=== PATIENT | male | born 1965 | race Caucasian/White ===

== ENCOUNTER → 2019-12-16 08:36 | Outpatient (BNVA) | payer OTHER, SELFPAY | PROVIDERS: Visit Provider Physician Assistant | DX: Z76.89 Persons encountering health services in other specified circumstances (principal) ==

== ENCOUNTER 2022-05-08 10:07 | Outpatient (REF) | payer BC, SELFPAY ==
[2022-05-08 11:50] LABS: MANUAL DIFF FLAG NO
[2022-05-08 12:04] LABS: Appearance Urine Clear; Color Urine Yellow; Glucose Urine UA Negative (Negative); Leukocyte Esterase Urine Negative (Negative); Nitrite Urine Negative (Negative); PH 5.5 (5.0-9.0); Specific Gravity - Urine 1.015 (1.005-1.025); Urine Blood Negative (Negative); Urine Ketones Negative (Negative); Urine Protein Negative (Neg-Trace)
[2022-05-08 12:07] LABS: Basophils Percent Auto 0.5 % (0-2); Eosinophils Absolute Auto 0.1 X10*3/uL (0.0-0.4); Eosinophils Percent Auto 1.7 % (0-4); Hemoglobin 15.4 g/dl (14.0-18.0); Imm Gran Abs Auto 0.04 X10*3/uL (0.00-0.03); Imm Gran Pct Auto 0.6 % (0.0-0.4); Lymphocytes Absolute Auto 2.5 X10*3/uL (1.2-4.9); Lymphocytes Percent Auto 38.4 % (20-40); Mean Corpuscular HGB Conc 34.2 g/dl (31.0-36.0); Mean Corpuscular Hemoglobin 30.3 pg (27.0-33.0); Mean Corpuscular Volume 88.4 fL (80.0-98.0); Monocytes Absolute Auto 0.5 X10*3/uL (0.1-1.2); Monocytes Percent Auto 7.9 % (2-11); Neutrophils Absolute Auto 3.3 x10*3/uL (2.0-8.3); Neutrophils Percent Auto 50.9 % (45-73); Platelet Count 255 X10*3/uL (160-400); Red Blood Count 5.09 X10*6/uL (4.60-5.80); Red Cell Distribution Width 12.5 % (11.0-16.0); White Blood Count 6.6 X10*3/uL (4.8-10.8)
[2022-05-08 12:37] LABS: Alanine Aminotransferase 40 U/L (0-40); Albumin Level 4.6 g/dL (3.5-5.0); Alkaline Phosphatase 56 U/L (39-117); Anion Gap 13 (12-20); Aspartate Amino Transferase 33 U/L (5-37); Bilirubin Total 0.5 mg/dL (0.0-1.0); Blood Urea Nitrogen 12 mg/dL (9-16); Calcium 9.7 mg/dL (8.4-10.2); Carbon Dioxide 28 mmol/L (22-29); Chloride 103 mmol/L (96-108); Cholesterol 226 mg/dL; Estimated Glomerular Filt Rate > 60; Glucose Fasting 107 mg/dL (60-99); HDL Cholesterol 54 mg/dL; LDL Cholesterol Calculated 112 mg/dl; Potassium 4.3 mmol/L (3.3-5.1); Sodium 140 mmol/L (135-145); Total Protein 7.9 g/dL (6.5-8.0); Triglycerides 304 mg/dL
[2022-05-08 12:54] LABS: TSH reflex Free T4 2.61 uIU/mL (0.32-4.0)
[2022-05-09 17:28] LABS: Follicle Stimulating Hormone 2.7 mIU/mL (1.6-8.0); Lutenizing Hormone 3.9 mIU/mL (1.5-9.3); Sex Hormone Binding Globulin 34 nmol/L (10-50)
[2022-05-15 18:10] LABS: Testosterone, Free 90.6 pg/mL (35.0-155.0); Testosterone, Total 410 ng/dL (250-1100)
== END 2022-05-08 10:08 | disposition home or self-care (01) ==
LOC: HO.HMGCLDS 10:07
PROVIDERS: Visit Provider Nurse Practitioner Family
DX: N52.9 Male erectile dysfunction, unspecified (principal)
CPT/HCPCS: 36415; 80053; 80061; 81003; 83001; 83002; 84270; 84402; 84403; 84443; 85025

== ENCOUNTER → 2022-06-19 07:23 | Outpatient (BNVA) | payer BC, SELFPAY | PROVIDERS: PCP Nurse Practitioner Family; Referring Provider Nurse Practitioner Family; Visit Provider Physician Assistant | DX: Z13.89 Encounter for screening for other disorder (principal) ==

== ENCOUNTER 2022-12-07 07:38 | Outpatient (REF) | payer BC, SELFPAY ==
[2022-12-07 11:19] LABS: MANUAL DIFF FLAG NO
[2022-12-07 11:24] LABS: Appearance Urine Clear; Color Urine Yellow; Glucose Urine UA Negative (Negative); Leukocyte Esterase Urine Negative (Negative); Nitrite Urine Negative (Negative); Urine Blood Negative (Negative); Urine Ketones Negative (Negative); Urine Protein Negative (Neg-Trace)
[2022-12-07 11:31] LABS: Basophils Percent Auto 0.3 % (0-2); Eosinophils Absolute Auto 0.1 X10*3/uL (0.0-0.4); Eosinophils Percent Auto 1.9 % (0-4); Hematocrit 40.9 % (42.0-52.0); Hemoglobin 14.1 g/dl (14.0-18.0); Imm Gran Abs Auto 0.04 X10*3/uL (0.00-0.03); Imm Gran Pct Auto 0.7 % (0.0-0.4); Lymphocytes Absolute Auto 2.4 X10*3/uL (1.2-4.9); Lymphocytes Percent Auto 40.3 % (20-40); Mean Corpuscular HGB Conc 34.5 g/dl (31.0-36.0); Mean Corpuscular Hemoglobin 29.9 pg (27.0-33.0); Mean Corpuscular Volume 86.7 fL (80.0-98.0); Monocytes Absolute Auto 0.4 X10*3/uL (0.1-1.2); Monocytes Percent Auto 7.4 % (2-11); Neutrophils Absolute Auto 2.9 x10*3/uL (2.0-8.3); Neutrophils Percent Auto 49.4 % (45-73); Platelet Count 263 X10*3/uL (160-400); Red Blood Count 4.72 X10*6/uL (4.60-5.80); Red Cell Distribution Width 12.6 % (11.0-16.0); White Blood Count 5.9 X10*3/uL (4.8-10.8)
[2022-12-07 11:53] LABS: Alanine Aminotransferase 27 U/L (0-40); Albumin Level 4.2 g/dL (3.5-5.0); Alkaline Phosphatase 61 U/L (39-117); Anion Gap 15 (12-20); Aspartate Amino Transferase 22 U/L (5-37); Bilirubin Total 0.4 mg/dL (0.0-1.0); Blood Urea Nitrogen 13 mg/dL (9-16); Calcium 9.5 mg/dL (8.4-10.2); Carbon Dioxide 23 mmol/L (22-29); Chloride 107 mmol/L (96-108); Cholesterol 171 mg/dL (<200); Estimated Glomerular Filt Rate > 60; Glucose Fasting 101 mg/dL (60-99); HDL Cholesterol 52 mg/dL (>40); LDL Cholesterol Calculated 81 mg/dL (<100); Potassium 3.9 mmol/L (3.3-5.1); Sodium 141 mmol/L (135-145); Total Protein 7.5 g/dL (6.5-8.0); Triglycerides 193 mg/dL (<150)
[2022-12-07 12:11] LABS: TSH reflex Free T4 2.23 uIU/mL (0.32-4.0)
[2022-12-07 12:46] LABS: Prostate Specific Antigen Scr 0.61 ng/mL (<0.05-4.0)
== END 2022-12-07 07:39 | disposition home or self-care (01) ==
LOC: HO.HMGCLDS 07:38
PROVIDERS: PCP Nurse Practitioner Family; Visit Provider Nurse Practitioner Family
DX: Z00.00 Encounter for general adult medical examination without abnormal findings (principal); Z12.5 Encounter for screening for malignant neoplasm of prostate; E78.5 Hyperlipidemia, unspecified
CPT/HCPCS: 36415; 80053; 80061; 81003; 84153; 84443; 85025

== ENCOUNTER 2023-02-06 09:46 | Outpatient (AMB) | payer BC, SELFPAY ==
--- NOTE | 2023-02-06 09:51 | MHC.PC.OV ---
Vital Signs 02/06/23 09:52 Height 5 ft 11 in Weight 247 lb BMI 34.4 BP 112/78 Blood Pressure Location Rt brachial Position Sitting Pulse 83 Pulse Source Pulse Oximeter Pulse Oximetry (%) 97 Oxygen Delivery Method Room Air Intake Visit Reasons: 6m follow up anxiety Allergies blue dye [BLUE DYE] Allergy (Intermediate, Verified 06/19/22 07:35) HIVES Penicillins [PENICILLINS] Allergy (Intermediate, Verified 06/19/22 07:35) HIVES Medication List - Last Reconciled 02/06/23 by Daniel Foy, [employer]- atorvastatin 20 mg PO DAILY bisacodyl (Dulcolax (bisacodyl)) 10 mg (2 x 5 mg) PO ONCE 1 day flaxseed oil 1,000 mg PO DAILY ibuprofen 800 mg PO Q8H PRN 30 days lisinopril 20 mg PO DAILY milk thistle 300 mg PO DAILY Tobacco use date assessed: 06/07/22 HPI 6m follow up anxiety HPI Details Anxiety: Pt reports doing well. He is no longer taking buspirone. He does not want to try another med, currently. Denies any SI and HI. [facility] Medical History HTN (hypertension) Pulmonary emboli Pulmonary embolism on long-term anticoagulation therapy Surgical History Hx of anterior cruciate ligament surgery Family History Father No problems noted. Mother HTN (hypertension) Heart burn Maternal Aunt Throat cancer Family/Other Skin cancer Brother Diabetes Maternal Grandmother TIA (transient ischemic attack) Housing: House Alcohol intake: current Patient Tobacco Use Status: Never used Tobacco e-Cigarette/Vaping Use: Never Used Second Hand Smoke Exposure: No Substance Use Type: Marijuana service: Yes Current occupational status: employed Current occupation: [employer] Current occupational exposures/hazards: Yes Cognitive needs: No Hearing needs: No Vision needs: No Questionnaire Thrive Questionnaire Date Thrive assessed: 06/07/22 STEPHANIE-7 AMB Questionnaire STEPHANIE-7 Date STEPHANIE - 7 assessed: 02/06/23 Feeling nervous, anxious, or on edge: 3 = Nearly every day Not being able to stop or control worryin = Several days Worrying too much about different things: 1 = Several days Trouble relaxin = Not at all Being so restless that it is hard to sit still: 0 = Not at all Becoming easily annoyed or irritable: 1 = Several days Feeling afraid as if something awful might happen: 0 = Not at all Total STEPHANIE-7 score (0-4 normal; 5-9 mild; 10-14 moderate; 15-21 severe): 6 Source: Developed by Drs. Hansel Roberts, Malinda Corona, Yusef Gomes and colleagues, with an educational [place] from [employer]. Review of Systems Const Reports as per HPI Physical exam (Primary Care) Vital Signs: Last Vital Signs Pulse 83 02/06/23 09:52 BP 112/78 02/06/23 09:52 Pulse Ox 97 02/06/23 09:52 Oxygen Delivery Method Room Air 02/06/23 09:52 BMI result Body Mass Index 34.4 Tobacco/Smoking Status: Tobacco use Status Tobacco use date assessed 06/07/22 02/06/23 09:52 Patient Tobacco Use Status Never used Tobacco 02/06/23 09:52 e-Cigarette/Vaping Use Never Used 02/06/23 09:52 Thrive Assessment: Date of Thrive Assessment Date Thrive assessed 06/07/22 02/06/23 09:52 Const General: cooperative Nutritional Appearance: obese Orientation/consciousness: patient oriented x3 Resp Effort & Inspection: normal respiratory effort Auscultation: clear to auscultation bilaterally Cardio Rate: regular rate Rhythm: regular rhythm Heart sounds: S1 normal heart sound present and S2 normal heart sound present Neuro General: patient oriented x3 Psych Appearance: grossly normal Mental Status: mental status grossly normal Speech and movement: Normal speech and movement present Affect: normal affect Attitude: cooperative Thought process: Normal thought process present Thought content: Normal thought content present Insight: Good insight present (Psych) Judgement: Good judgement present (Psych) Assessment and Plan Assessment & Plan (1) Anxiety: Code(s): F41.9 - Anxiety disorder, unspecified Plan: will cont to monitor Plan The patient agreed to the use of a medical practitioners for this encounter. Scribed for [facility] by Sejal Alvarado medical practitioners, on 02/06/2023 at 10:10 EST. Medications: New ibuprofen 800 mg PO Q8H 30 days PRN 90 tabs 0RF pain Coding Level of Care Code Est Pt Level 3 (17017) Diagnoses Anxiety F41.9
[2023-02-06 09:52] VITALS: BP 112/78; PULSE 83; O2SAT 97; BMI 34.4
== END 2023-02-06 11:42 | disposition home or self-care (01) ==
PROVIDERS: PCP Nurse Practitioner Family; Visit Provider Nurse Practitioner Family
DX: F41.9 Anxiety disorder, unspecified (principal)
CPT/HCPCS: 99213

== ENCOUNTER 2023-02-20 08:24 | Day surgery (SDC) | payer BC, SELFPAY ==
--- NOTE | 2023-02-19 10:03 | P.CONAN_ITS ---
Documented by User: Danae Salazar NP 02/19/23 10:06 HPI - Anesthesia Eval Consult details Narrative: 57yo M for Upper Endoscopy and Colonoscopy Hx of PE, no anticoag now PMFSH Active Problems Active Problems: All Active Problems (Updated 02/06/23 @ 10:08 by Daniel Foy, [facility]) Fatty liver (Acute) Acid reflux (Acute) Anxiety (Acute) Screening for prostate cancer (Acute) Physical exam (Acute) Dyslipidemia (Acute) Erectile dysfunction (Acute) Screening for colon cancer (Acute) Pulmonary embolism (Chronic) Encounter for screening colonoscopy (Acute) HTN (hypertension) (Acute) Past Medical History Medical History Fatty liver Acid reflux Anxiety Dyslipidemia Erectile dysfunction HTN (hypertension) Pulmonary emboli Family History Family History Father No problems noted. Mother HTN (hypertension) Heart burn Maternal Aunt Throat cancer Family/Other Skin cancer Brother Diabetes Maternal Grandmother TIA (transient ischemic attack) Surgical History Surgical History History of total left hip arthroplasty Hx of anterior cruciate ligament surgery Social History Social History Housing: House Alcohol intake: current Patient Tobacco Use Status: Never used Tobacco e-Cigarette/Vaping Use: Never Used Second Hand Smoke Exposure: No Use of substances other than those prescribed or required for medical reasons: Yes Substance Use Type: Marijuana Substance Use Frequency: Occasionally Are you DNR?: No Advance Directives: No Advance Directives Information Provided: Yes service: Yes Current occupational status: employed Current occupation: [employer] Current occupational exposures/hazards: Yes Cognitive needs: No Hearing needs: No Vision needs: No Meds Allergies Allergy/AdvReac Type Severity Reaction Status Date / Time blue dye [BLUE DYE] Allergy Intermediate HIVES Verified 06/19/22 07:35 Penicillins [PENICILLINS] Allergy Intermediate HIVES Verified 06/19/22 07:35 Home Medications Medication Instructions Recorded Confirmed Last Taken Type flaxseed oil 1,000 mg capsule 1,000 mg PO DAILY 1102/06/23 02/17/23 History milk thistle 150 mg capsule 300 mg PO DAILY 02/06/23 02/06/23 02/17/23 History Assessment and Plan Assessment Anesthesia Assessment: Chart Reviewed Documented by User: Mari Cisneros MD 02/20/23 09:23 [facility] Past Medical History Medical History Fatty liver Acid reflux Anxiety Dyslipidemia Erectile dysfunction HTN (hypertension) Pulmonary emboli Family History Family History Father No problems noted. Mother HTN (hypertension) Heart burn Maternal Aunt Throat cancer Family/Other Skin cancer Brother Diabetes Maternal Grandmother TIA (transient ischemic attack) Family history of problems with anesthesia: No Surgical History Surgical History History of total left hip arthroplasty Hx of anterior cruciate ligament surgery History of Problems with Anesthesia: No Social History Social History Housing: House Alcohol intake: current Patient Tobacco Use Status: Never used Tobacco e-Cigarette/Vaping Use: Never Used Second Hand Smoke Exposure: No Use of substances other than those prescribed or required for medical reasons: Yes Substance Use Type: Marijuana Substance Use Frequency: Occasionally Are you DNR?: No Advance Directives: No Advance Directives Information Provided: Yes service: Yes Current occupational status: employed Current occupation: [employer] Current occupational exposures/hazards: Yes Cognitive needs: No Hearing needs: No Vision needs: No Meds Allergies Allergy/AdvReac Type Severity Reaction Status Date / Time blue dye [BLUE DYE] Allergy Intermediate HIVES Verified 06/19/22 07:35 Penicillins [PENICILLINS] Allergy Intermediate HIVES Verified 06/19/22 07:35 Home Medications Medication Instructions Recorded Confirmed Last Taken Type flaxseed oil 1,000 mg capsule 1,000 mg PO DAILY 02/06/23 02/06/23 02/17/23 History milk thistle 150 mg capsule 300 mg PO DAILY 02/06/23 02/06/23 02/17/23 History Exam Airway Mallampati Class: II TM Dist: >3cm Neck ROM: Full Heart: rrr Lungs: cta Assessment and Plan Assessment Anesthesia Assessment: Anesthesia Plan Discussed and Chart Reviewed (pot smoker ) Final Anesthetic Review Family History of Problems with Anesthesia: No History of Problems with Anesthesia: No NPO: Yes ASA Class: II Final Preanesthetic Review: No Changes in Pt Med Stat, Meds/Allgs Chart Reviewed, Consent Obtained/Reviewed and Anes Risks/Benef Reviewed Patient Risk: Intermediate Procedure Risk: Low Anesthetic Plan Anesthetic Plan: MAC: Disposition: Standard PACU
[2023-02-20 09:03] VITALS: BMI 33.7
--- NOTE | 2023-02-20 09:08 | MHC.SHP ---
Pre-Procedural Eval Section A Date of Service: 02/20/23 Section B Chief Complaint: Encounter for screening for malignant neoplasm of Relevant Family History (Specify if Yes): No Relevant Social History: None Present Medications: see Short Stay Collaborative assessment Medical History: Significant History (Fatty liver Acid reflux Anxiety Dyslipidemia Erectile dysfunction HTN (hypertension) Pulmonary emboli) History of Previous Operations: Relevant previous surgery/procedure and date(s) (Hx of anterior cruciate ligament surgery) Allergies: Allergies Allergy/AdvReac Type Severity Reaction Status Date / Time blue dye [BLUE DYE] Allergy Intermediate HIVES Verified 06/19/22 07:35 Penicillins [PENICILLINS] Allergy Intermediate HIVES Verified 06/19/22 07:35 Review of Systems Sugical H&P ROS: Negative: Constitution, Cardiovascular, Respiratory, Neurological, Psychiatric, Hem-Onc, Allergic/Immunologic, Gastrointestinal, Genitourinary, Musculoskeletal, Integumentary, Endocrine and Eyes/Ears/Nose/Throat Exam Surgical H&P Exam: Normal: HEENT, Normal: Heart, Normal: Lungs, Normal: Extremities, Normal: Abdomen, Normal: Skin and Normal: Neurological Plan Diagnosis/Plan: Unchanged I have reviewed the history and physical and performed a pertinent physical examination on my patient. No changes have occurred unless specified. Time Spent With Patient Time: Total time managing care of this patient today ____ minutes.
[2023-02-20 09:25] VITALS: BP 151/85; PULSE 74; RESP 15; TEMP 36.6; O2SAT 95
[2023-02-20] MEDS: Lactated Ringers 1,000 ML 100 ML IVCONT (09:27)
--- NOTE | 2023-02-20 10:31 | P.OP_ITS ---
Operative Note Operative Note Date of Service: 02/20/23 Narrative: Operative Information Procedure Description: EGD, Colonoscopy Indication: GERD, screening colon Anesthesia: MAC FLEXIBLE TRANSORAL UPPER GASTROINTESTINAL ENDOSCOPY AND COLONOSCOPY PROCEDURE NOTE UPPER ENDOSCOPY Consent: Indications for the procedure and potential complications of bleeding, perforation, reaction to medications and missed diagnosis were discussed with the patient and informed consent was obtained. Instrument: Olympus GIF H 190 J mid size upper endoscope Monitoring: Vital signs and clinical assessment, continuous EKG monitoring, Pulse oximetry, Carbon Dioxide monitoring and blood pressure monitoring were done throughout the procedure. Procedure: The patient was placed in the left lateral decubitis position and pre-procedure medications were administered and a bite block was placed. The endoscope was inserted into the mouth and advanced under direct vision to the third part of duodenum. A careful inspection was made as the upper endoscope was withdrawn including a retroflexed examination of the proximal stomach; Findings and interventions are described below. Findings: Larynx:normal Esophagus: GE junction at 38 cm, diaphragm hiatus at 38 cm, suspected short segment barretts with few tongues of erythematous salmon pink tissue, bx taken, also from distal esophagus Stomach: antral erythema . Biopsies were obtained. Grade 2 flap valve on retroflexed examination of the cardia. Duodenum: Mild bulbar duodenitis , bx taken Intervention: Biopsies as noted above COLONOSCOPY Instrument: Olympus variable stiffness pediatric scope 190L Colonoscopy Monitoring: Vital signs and clinical assessment, continuous EKG monitoring, Pulse oximetry, Carbon Dioxide monitoring and blood pressure monitoring were done throughout the procedure. Colon withdrawal time was 8 minutes. Procedure: The patient was placed in the left lateral decubitis position and pre-procedure medications were administered. After a digital rectal examination of the ano-rectum, the video colonoscope was inserted into the rectum and advanced through the colon to the cecum/TI. The colonoscope was slowly withdrawn in a retrograde panoramic fashion and the colon mucosa was carefully examined including a retroflexed view of the rectum. Findings and interventions are described below. Procedure Difficulty:easy Findings: Terminal Ileum-normal Cecum:normal Ascending Colon: 10 mm sessile polyp removed with cold snare Transverse Colon -normal Descending Colon:normal Sigmoid Colon:mild to moderate diverticulosis Rectum: Retroflexion with small internal hemorrhoids, grade I Anorectum - normal Colon preparation: Dubberly Bowel Preparation Scale Right colon; 2 Transverse colon: 3 Left colon; 3 (0 = Unprepared colon segment with mucosa not seen due to solid stool that cannot be cleared. 1 = Portion of mucosa of the colon segment seen, but other areas of the colon segment not well seen due to staining, residual stool and/or opaque liquid. 2 = Minor amount of residual staining, small fragments of stool and/or opaque liquid, but mucosa of colon segment seen well. 3 = Entire mucosa of colon segment seen well with no residual staining, small fragments of stool or opaque liquid) Impression and Post Procedure Diagnosis: Endoscopy Findings: gastritis esophagitis, and possible barretts duodenitis Colonoscopy Findings: polyp internal hemorrhoids diverticular disease Plan: Await Pathology results Repeat Colonoscopy in 5 years due to adenomatous appearing polyp or earlier if clinically indicated High fiber diet leaflet avoid straining at stool, epsom salts and sitz bath, anusol supps or cream if Barretts confirmed then repeat EGD in 2-3 yrs, consider PPI Above findings were reviewed with the patient and relevant handouts were provided if indicated.
[2023-02-20 10:40] VITALS: BP 138/73; PULSE 82; RESP 16; TEMP 36.1; O2SAT 95
[2023-02-20 10:55] VITALS: BP 142/78; PULSE 61; RESP 16; O2SAT 97
[2023-02-20 11:10] VITALS: BP 137/80; PULSE 65; RESP 16; TEMP 36.1; O2SAT 97
== END 2023-02-20 11:42 | disposition home or self-care (01) ==
PROVIDERS: PCP Nurse Practitioner Family; Visit Provider Internal Medicine Gastroenterology
PROC: (CPT 43239; principal; 2023-02-20 10:50)
DX: K20.80 Other esophagitis without bleeding (principal); K29.70 Gastritis, unspecified, without bleeding; K29.80 Duodenitis without bleeding; K21.9 Gastro-esophageal reflux disease without esophagitis; Z12.11 Encounter for screening for malignant neoplasm of colon; D12.2 Benign neoplasm of ascending colon; K57.30 Diverticulosis of large intestine without perforation or abscess without bleeding; K64.0 First degree hemorrhoids; I10 Essential (primary) hypertension; E78.5 Hyperlipidemia, unspecified; K76.0 Fatty (change of) liver, not elsewhere classified; F12.90 Cannabis use, unspecified, uncomplicated; Z86.711 Personal history of pulmonary embolism; Z79.899 Other long term (current) drug therapy; Z79.01 Long term (current) use of anticoagulants; Z79.02 Long term (current) use of antithrombotics/antiplatelets
CPT/HCPCS: 43239; 45385; 88305; 88342; J2704

== ENCOUNTER → 2023-02-20 08:24 | Outpatient (BNV) | payer BC, SELFPAY | PROVIDERS: PCP Nurse Practitioner Family; Visit Provider Internal Medicine Gastroenterology | DX: Z12.11 Encounter for screening for malignant neoplasm of colon (principal); K21.00 Gastro-esophageal reflux disease with esophagitis, without bleeding; K29.90 Gastroduodenitis, unspecified, without bleeding; D12.2 Benign neoplasm of ascending colon; K64.0 First degree hemorrhoids; K57.30 Diverticulosis of large intestine without perforation or abscess without bleeding | CPT/HCPCS: 43239; 45385 ==

== ENCOUNTER 2023-03-07 10:23 | Outpatient (AMB) | payer BC, SELFPAY ==
--- NOTE | 2023-03-07 10:28 | A.OFFVIS_ITS ---
Intake Vital Signs 03/07/23 10:29 Height 5 ft 11 in Weight 145 lb BMI 20.2 BP 148/72 H Blood Pressure Location Lt brachial Position Sitting Pulse 104 H Intake Visit Reasons: s/p egd/colon [place] Intake Note: Patient follow up for EGD/Colonoscopy results. patient denies any GI issues. 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 Accompanied by: Self / Same As Patient Allergies blue dye [BLUE DYE] Allergy (Intermediate, Verified 03/07/23 10:27) HIVES Penicillins [PENICILLINS] Allergy (Intermediate, Verified 03/07/23 10:27) HIVES Medication List - Last Reconciled 03/07/23 by Cristy Alexander PA-C atorvastatin 20 mg PO DAILY flaxseed oil 1,000 mg PO DAILY ibuprofen 800 mg PO Q8H PRN 30 days lisinopril 20 mg PO DAILY milk thistle 300 mg PO DAILY pantoprazole 40 mg (2 x 20 mg) PO ONCE 30 days HPI HPI Comments History of Present Illness Details A 57 y/o male f/u after EGD and colonoscopy-an he seems to be somewhat anxious He took a fat pill before he came- he does it this time of year to supress appetite-it does cause increased heart rate, he admits he probably should not be take Reviewed procedure report, pathology and recommendation pre cancerous polyp removed adenoma/serrated type, repeat colon in 5 years, or earlier if any concerns or new symptoms ALSO EGD with chronic inflamamtion of GEJ consistent with acid reflux, recommend -repeat EGD in 6-12 months to see if improved And he has good appetite, he does have acid reflux currently not taking anything Bowel are normal No nausea, vomiting, hematemesis, hematochezia fever chills PFSH Medical History (Updated 03/07/23 @ 14:22 by Cristy Alexander PA-C) Acid reflux Fatty liver Anxiety Dyslipidemia Erectile dysfunction HTN (hypertension) Pulmonary emboli Surgical History History of esophagogastroduodenoscopy (EGD) Hx of colonoscopy History of total left hip arthroplasty Hx of anterior cruciate ligament surgery Family History Father No problems noted. Mother HTN (hypertension) Heart burn Maternal Aunt Throat cancer Family/Other Skin cancer Brother Diabetes Maternal Grandmother TIA (transient ischemic attack) Social History Housing: House Alcohol intake: current Patient Tobacco Use Status: Never used Tobacco e-Cigarette/Vaping Use: Never Used Second Hand Smoke Exposure: No Substance Use Type: Marijuana service: Yes Current occupational status: employed Current occupation: [employer] Current occupational exposures/hazards: Yes Cognitive needs: No Hearing needs: No Vision needs: No Review of Systems Const All systems reviewed & are unremarkable except as noted in HPI and below Card Denies chest pain and Denies dyspnea Resp Denies dyspnea GI Denies abdominal pain, Denies change in stool character, Reports heartburn, Denies nausea and Denies vomiting Physical Exam Vital Signs: Last Vital Signs Pulse 104 H 03/07/23 10:29 BP 148/72 H 03/07/23 10:29 BMI result Body Mass Index 20.2 Const General: cooperative, healthy appearing, comfortable and anxious Orientation/consciousness: patient oriented x3 Limitations: no limitations Eyes Sclerae: sclerae normal Resp Effort & Inspection: normal respiratory effort and able to speak in complete sentences Skin General skin exam: no rashes or lesions noted Neuro General: patient oriented x3 Extrem General: Yes full ROM Psych Appearance: grossly normal and well kempt Speech and movement: Normal speech and movement present and Clear speech present Affect: normal affect Attitude: cooperative Thought process: Normal thought process present Thought content: Normal thought content present Insight: Good insight present (Psych) Judgement: Good judgement present (Psych) Results Reviewed Results Reviewed: shy: Abbie Kang Age/Sex: 73/F Attending: Aden Skaggs MD : 11/10/1949 Submitted by: Aden Skaggs MD Copies to: Vanessa Godoman MD MR #: [id number] Status: [facility] Collected: 02/21/23 Location: [facility] Received: 02/21/23 Diagnosis A. Colon, ascending, polypectomies: Fragments of tubular adenomata; negative for high-grade dysplasia or carcinoma. B. Colon, descending, polypectomies: Tubular adenomata; negative for high-grade dysplasia or carcinoma. C. Rectum, polypectomy: Hyperplastic mucosal polyp. Clinical History Pre-Op Dx: Screening Post-Op Dx: Diverticulosis, hemorrhoids, polyps Microscopic Description A-C. Microscopic sections reviewed. Material Received A. Ascending colon polyps B. Descending colon polyps C. Rectal polyps Gross Description Received in 3 parts. Part A: Received in formalin labeled ?ascending colon polyp (sic)? are multiple ervin-pink and pink-red irregular and papular tissue fragments ranging from 0.2-1.2 cm in greatest dimension. The largest fragment is sectioned and entirely submitted in cassette A1. The smaller tissue fragments aggregating 1.5 x 1.5 x 0.2-0.4 cm are submitted in toto in cassette A2. Part B: Received in formalin labeled ?descending colon (sic)? are several minute to 0.9 cm in greatest dimension irregular fragments and papules of ervin-pink and red-maroon tissue. The resected base of the largest fragment is inked and the specimen is sectioned and entirely submitted along with the smaller tissue fragments, submitted in toto in a cassette labeled B. Part C: Received in formalin labeled ?rectal polyps? are 3 focally congested and hemorrhagic, ervin and red-maroon irregular and papular tissue fragments ranging from 0.1-0.6 cm in greatest dimension. The resected base of the largest fragment is inked and the specimen is bisected and entirely submitted along with the 2 smaller tissue fragments, submitted in toto in a cassette labeled C. Patient: Abbie Kang Age/Sex: 73/F MR#: [id number] Page 1 of 2 Name: Jero Pñea Age/Sex: 57/M Attending: Aden Skaggs MD : 1965 Submitted by: Aden Skaggs MD Copies to: Daniel Foy [facility]- MR #: [id number] Status: [facility] Collected: 02/20/23 Location: [facility] Received: 02/20/23 Diagnosis A. Colon, ascending, polypectomy: Fragments of tubular adenoma; negative for high-grade dysplasia or carcinoma. B. Duodenum, biopsy: Duodenal mucosa within normal limits. C. Stomach, biopsy: Oxyntic mucosa with moderate chronic inactive inflammation; no Helicobacter organisms seen. D. GE junction, biopsy: - Cardiofundic-type mucosa with moderate chronic, focally active, inflammation; no intestinal metaplasia seen. - Squamous mucosa within normal limits. E. Esophagus, distal, biopsy: - Cardiofundic-type mucosa with mild chronic inactive inflammation; no intestinal metaplasia seen. - Squamous epithelium within normal limits. Clinical History Pre-Op Dx: Colon cancer screening, GERD Post-Op Dx: Colon polyp, diverticulosis, hemorrhoids, esophagitis, gastritis, duodenitis, possible Hernandez's esophagus Microscopic Description A-E. Microscopic sections reviewed. Immunostain for H. pylori is non-reactive (C). Material Received A. Ascending colon polyp B. Duodenum bx's C. Stomach bx's D. GE junction bx's, r/o Hernandez's esophagus E. Distal esophagus bx's Gross Description Received in 5 parts. Part A: Received in formalin labeled ascending colon polyp 1 piece of ervin tissue measuring 0.8 cm, all Patient: Jero Peña Age/Sex: 57/M MR#: [id number] Page 1 of 2 Assessment & Plan Assessment & Plan (1) Tubular adenoma: Comment: repeat asymptomatic colonoscopy 5 years Code(s): D36.9 - Benign neoplasm, unspecified site Plan: 5 year-repeat colonoscopy (2) Acid reflux: Comment: Reflux precautions reviewed, encourage PPI Code(s): K21.9 - Gastro-esophageal reflux disease without esophagitis Plan: pantoprazole 40 mg reflux precautions repeat EGD 6-12 months (3) Diverticulosis of colon: Code(s): K57.30 - Diverticulosis of large intestine without perforation or abscess without bleeding Plan EGD 6-[address] Skaggs Pantoprazole 40 mg Repeat asymptomatic colonoscopy 5 years for adenoma Medications: New pantoprazole 40 mg (2 x 20 mg) PO ONCE 30 days 60 tabs 10RF Patient Instructions: Repeat asymptomatic colonoscopy 5 years for tubular adenoma Be sure to inform all first-degree relatives age over 45 they should have screening colonoscopy pantoprazole 40 mg reflux precautions repeat EGD 6-12 months Diverticulosis/diverticulitis ER protocol Maintain high-fiber diet Questions answered to his satisfaction Encouraged to call with questions or concerns Coding Level of Care Code Est Pt Level 3 (55726) Diagnoses Tubular adenoma D36.9 Acid reflux K21.9 Diverticulosis of colon K57.30 Time Spent (min) 30
[2023-03-07 10:29] VITALS: BP 148/72; PULSE 104; BMI 20.2
== END 2023-03-07 11:06 | disposition home or self-care (01) ==
PROVIDERS: PCP Nurse Practitioner Family; Visit Provider Physician Assistant
DX: D36.9 Benign neoplasm, unspecified site (principal); K21.9 Gastro-esophageal reflux disease without esophagitis; K57.30 Diverticulosis of large intestine without perforation or abscess without bleeding
CPT/HCPCS: 99213

== ENCOUNTER → 2023-03-07 10:23 | Outpatient (BNVA) | payer BC, SELFPAY | PROVIDERS: PCP Nurse Practitioner Family; Visit Provider Physician Assistant ==

== ENCOUNTER → 2023-11-07 13:52 | Outpatient (RCR) | payer OTHER, SELFPAY ==
--- NOTE | 2019-12-17 14:20 | MHC.HEMONC ---
pt called to report he is sceduled for colonscopy. pre dr michelle pt will stop eliquis for 2 days before and restart the day after.
[2020-02-24 10:06] VITALS: BP 141/87; PULSE 82; RESP 12; TEMP 36.2; O2SAT 97; BMI 34.6
--- NOTE | 2020-02-24 10:15 | P.PNHO_ITS ---
Medical Summary - Medical Summary Date of Service: 02/24/20 Chief complaint: Follow-up Medical Summary: Diagnosis: Submassive pulmonary embolism April 2019 Admitted to [facility] with 1 month history of worsening shortness of breath. CTA revealed submassive PE with RV strain. Treated with tPA, transferred to MICU, unfractionated heparin for 48 hours and transition to apixaban. Echocardiogram significant for grade 1 diastolic dysfunction and a d ilated vena cava. No prior history, no family history of thromboembolism and no risk factors such as smoking or immobilization, lower extremity trauma or surgery. Thrombophilia workup was negative. Interval History Interval history: Patient is here in follow-up. He is doing well but reports that he is scheduled for left hip replacement surgery in March at [facility]. He also has chronic swelling of his right knee from arthritis. He denies any calf pain, redness, tenderness or swelling. He is on Eliquis twice a day and tolerating it well. He reports no bruising or bleeding. No pleuritic chest pain, shortness of breath or cough. No fever or chills. Review of Systems - Constitutional Reports no additional constitutional complaints, Reports weight gain - Cardiovascular Reports no additional cardiovascular complaints - Respiratory Reports no additional respiratory complaints - Gastrointestinal Reports no additional gastrointestinal complaints, Denies abdominal pain, Denies change in stools PMFSH Medical History: Medical History (Last Updated 12/16/19 @ 09:14 by Cristy Alexander PA-C) HTN (hypertension) Pulmonary emboli Pulmonary embolism on long-term anticoagulation therapy Family History: Family History (Last Updated 02/24/20 @ 10:11 by Nisha Grant) Father No problems noted. Mother HTN (hypertension) Heart burn Maternal Aunt Throat cancer Family/Other Skin cancer Brother Diabetes Maternal Grandmother TIA (transient ischemic attack) Surgical History: Surgical History (Last Updated 12/16/19 @ 09:14 by Cristy Alexander PA-C) Hx of anterior cruciate ligament surgery Smoking status: Never smoker Home Medications and Allergies Home Medications Medication Instructions Recorded Confirmed Type apixaban 5 mg tablet 5 mg PO BID 12/13/19 02/24/20 History atorvastatin 10 mg tablet 10 mg PO DAILY 12/13/19 02/24/20 History ibuprofen 800 mg tablet 800 mg PO Q8H 12/16/19 02/24/20 History Allergies Allergy/AdvReac Type Severity Reaction Status Date / Time blue dye [BLUE DYE] Allergy Intermediate HIVES Unverified 11/27/19 16:12 Penicillins [PENICILLINS] Allergy Intermediate HIVES Unverified 11/27/19 16:12 Exam Vital signs: Vital Signs Temp 97.2 F 02/24/20 10:06 Pulse 82 02/24/20 10:06 Resp 12 02/24/20 10:06 BP 141/87 H 02/24/20 10:06 Pulse Ox 97 02/24/20 10:06 Intake & Output 02/23/20 02/24/20 02/24/20 18:59 06:59 18:59 Other: Weight 112.6 kg Weight 112.6 kg Body Mass Index 34.6 - Constitutional Present: no acute distress - Routine HEENT Exam Head: Present: normal inspection Eye: Present: EOMI - Routine Neck Exam Present: lymphadenopathy, normal inspection - Routine Respiratory Exam Absent: respiratory distress - Routine Cardiovascular Exam Cardiovascular: Present: S1, S2 - Routine Extremities Exam Present: full ROM. Absent: calf tenderness, joint swelling - Routine Back/Spine/Pelvis Exam Back/Spine: Present: full ROM - Routine Skin Exam Present: intact. Absent: cyanosis, erythema Data - Labs CBC & Chem 7: 02/24/20 09:57 02/24/20 09:57 Progress Note: A/P (1) Pulmonary embolism Status: Chronic Assessment and plan: 1. This is a 54-year-old male who was diagnosed with submassive pulmonary embolism in April 2019. He was treated at [facility]. Her receive tPA, now he is on Eliquis 5 mg b.i.d.. He is tolerating it well. He is on long-term anticoagulation. Thrombophilia workup was negative. He has also been recommended routine screening for malignancy, colonoscopy. I have referred him for this to Gastroenterology. 2. He is scheduled for left hip surgery in March 2020. He has been advised about stopping Eliquis 3 days prior to procedure, bridging may be deferred since his pulmonary embolism was more than 6 months ago. He can be started back on Eliquis after surgery. Patient advised to call sooner if he develops any new problems. Follow-up in 6 months. Blood work today looks good. - Time Spent With Patient Total time spent is greater than 50% in coordination of care (as documented) at patient's floor/unit and/or counseling patient: 15 - 24 minutes
[2020-02-24 10:37] LABS: Hemoglobin 14.7 g/dl (14.0-18.0); Mean Corpuscular HGB Conc 34.2 g/dl (31.0-36.0); Mean Corpuscular Hemoglobin 29.9 pg (27.0-33.0); Mean Corpuscular Volume 87.6 fL (80-98); Mean Platelet Volume 9.7 fL (9.4-12.4); Platelet Count 280 X10*3/uL (160-400); Red Blood Count 4.91 X10*6/uL (4.60-5.80); Red Cell Distribution Width 12.5 % (11.0-16.0); White Blood Count 7.1 X10*3/uL (4.8-10.8)
[2020-02-24 10:48] LABS: D Dimer 404 NG/ML
[2020-02-24 10:59] LABS: Alanine Aminotransferase 33 U/L (0-40); Albumin Level 4.5 g/dL (3.5-5.0); Alkaline Phosphatase 66 U/L (39-117); Anion Gap 13 (12-20); Aspartate Amino Transferase 30 U/L (5-37); Bilirubin Total 0.4 mg/dL (0.0-1.0); Blood Urea Nitrogen 15 mg/dL (9-16); Calcium 8.8 mg/dL (8.4-10.2); Carbon Dioxide 28 mmol/L (22-29); Chloride 102 mmol/L (96-108); Creatinine Clr Calc Pharmacy 123.8; Estimated Glomerular Filt Rate > 60; Glucose Random 97 mg/dL (60-115); Potassium 4.9 mmol/l (3.3-5.1); Sodium 138 mmol/L (135-145); Total Protein 7.9 g/dL (6.5-8.0)
== END | disposition home or self-care (01) ==
LOC: HO.ONC 02-24 09:54
PROVIDERS: PCP Nurse Practitioner Family; Visit Provider Internal Medicine
DX: I26.99 Other pulmonary embolism without acute cor pulmonale (principal); Z79.01 Long term (current) use of anticoagulants
CPT/HCPCS: 36415; 80053; 85027; 85379; 99214

== ENCOUNTER 2024-05-12 14:07 | Outpatient (AMB) | payer BC, SELFPAY ==
[2024-05-12 14:18] VITALS: BP 160/82; PULSE 92; RESP 18; O2SAT 96; BMI 35.8
--- NOTE | 2024-05-12 14:18 | MHC.PC.OV ---
Vital Signs 05/12/24 14:18 05/12/24 15:25 Height 5 ft 11 in Weight 257 lb BMI 35.8 BP 160/82 H 164/88 H Blood Pressure Location Lt brachial Lt brachial Position Sitting Sitting Respiration 18 Pulse 92 Pulse Source Pulse Oximeter Pulse Oximetry (%) 96 Oxygen Delivery Method Room Air Intake Visit Reasons: Annual PE- miss appt from 03/25 Allergies blue dye [BLUE DYE] Allergy (Intermediate, Verified 05/12/24 15:29) HIVES Penicillins [PENICILLINS] Allergy (Intermediate, Verified 05/12/24 15:29) HIVES Medication List - Last Reconciled 05/12/24 by BLAINE MorelP- atorvastatin 20 mg PO DAILY ibuprofen 800 mg PO Q8H PRN 30 days indomethacin 50 mg PO BID PRN lisinopril 20 mg PO DAILY milk thistle 300 mg PO DAILY pantoprazole 40 mg (2 x 20 mg) PO BID 90 days prednisone 50 mg PO DAILY 5 days Tobacco use date assessed: 05/12/24 Dental Screening Dental Screen Date: 05/12/24 Did you have a dental visit in the last 12 months?: No Did you have a dental problem in the last 6 months where you did not have access to dental care?: No Was dental information given to patient?: No HPI Annual PE- miss appt from 03/25 HPI Details Chief Complaint The patient presents with frequent urination and requests treatment for gout and a dermatology referral for skin lesions. History of Present Illness The patient is a 59-year-old male presenting with concerns of benign prostatic hyperplasia and frequent urination. He is receiving concurrent care from the [facility] medical system, including urological evaluation. He denies symptoms such as chest pain, shortness of breath, or gastrointestinal distress. For recurring gout flares, he has previously used prednisone and indomethacin and is aware of the need to manage these medications prudently. The patient has noted the presence of multiple darker skin lesions on his torso, distinct in nature, and a persistent dermatitis affecting his scalp. Furthermore, he reports essential hypertension with a recent reading of 164 mmHg. He reports taking it at work, its in the 120s/70s. He will cont to monitor. Social History - Employment/Social Contributions: The patient did not discuss employment status but is engaging with the [place] system for medical care. - Substance Use: Not discussed. - Functional Status: Not discussed. Health Maintenance - Hypertension monitoring Review of Systems - Constitutional: Denies fatigue - Cardiovascular: Denies chest pain - Respiratory: Denies shortness of breath - Gastrointestinal: Denies abdominal pain, blood in stool - Psychiatric: Denies suicidal and homicidal ideation Physical Exam General: Cooperative, healthy appearing, comfortable, no acute distress and well developed Orientation: Patient oriented x3 Limitations: No limitations Head: Normal to inspection, some daily dermatitis noted Ears: Hearing grossly normal bilaterally Nose: Normal external nose present Face and sinus: Normal facial exam Eyes: Appearance normal, both eyes and all related structures Neck: Normal visual inspection and Yes full ROM Respiratory: Normal respiratory effort and able to speak in complete sentences. Clear to auscultation bilaterally Cardiovascular: Regular rate and rhythm. Normal S1 and S2 GI: Normal to inspection. Soft to palpation and nontender Skin: Scattered singular lesions to upper torso, darker than usual, possibly moles or birthmarks Neuro: Patient oriented x3 Extremities: Normal to inspection Results Plan The patient will proceed with a urology consultation [place] for his benign prostatic hyperplasia. He expressed a preference for gout management using prednisone and indomethacin, with caution against simultaneous use. A referral to dermatology is warranted to evaluate darker skin lesions. Scalp dermatitis management should continue, and systolic hypertension will require ongoing monitoring by the healthcare team. Discussion Notes During our discussion, I confirmed that he should follow up with his urologist [place] the [place] to address his benign prostatic hyperplasia and frequent urination concerns. We discussed gout management, cautioning against concurrent usage of prednisone and indomethacin. I advised a dermatology evaluation for the skin lesions noted on his torso. We reviewed his hypertension status and the importance of regular monitoring. I reinforced that his [place] healthcare team should continue providing coordinated care, including any necessary follow-ups or adjustments to his current treatment plan. Patient Instructions - Keep your upcoming urologist appointment for your prostate issues. - Use prednisone and indomethacin separately for gout flare-ups. 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 - Continue monitoring your blood pressure regularly. - Watch for any worsening symptoms and contact healthcare providers as needed. [facility] Medical History Acid reflux Fatty liver Anxiety Dyslipidemia Erectile dysfunction HTN (hypertension) Pulmonary emboli Surgical History History of esophagogastroduodenoscopy (EGD) Hx of colonoscopy History of total left hip arthroplasty Hx of anterior cruciate ligament surgery Family History Father No problems noted. Mother HTN (hypertension) Heart burn Maternal Aunt Throat cancer Family/Other Skin cancer Brother Diabetes Maternal Grandmother TIA (transient ischemic attack) Social History Housing: House Alcohol intake: current Patient Tobacco Use Status: Never used Tobacco e-Cigarette/Vaping Use: Never Used Second Hand Smoke Exposure: No Substance Use Type: Marijuana service: Yes Current occupational status: employed Current occupation: [employer] Current occupational exposures/hazards: Yes Cognitive needs: No Hearing needs: No Vision needs: No Questionnaire PHQ-9 Over the last 2 weeks, how often have you been bothered by any of the following problems? 1. Little interest or pleasure in doing things: several days 2. Feeling down, depressed, or hopeless: not at all 3. Trouble falling or staying asleep, or sleeping too much: nearly every day 4. Feeling tired or having little energy: several days 5. Poor appetite or overeating: not at all 6. Feeling bad about yourself - or that you are a failure or have let yourself or your family down: not at all 7. Trouble concentrating on things, such as reading the newspaper or watching television: nearly every day 8. Moving or speaking so slowly that other people could have noticed. Or the opposite - being so fidgety or restless that you have been moving around a lot more than usual: not at all 9. Thoughts that you would be better off or of hurting yourself in some way: not at all Total score: 8 Depression Screening Interpretation: Negative [facility] denies any si or hi) Depression Screening Done: Yes 92846 - PHQ-9 Billing: Yes Source: Developed by Drs. Hansel Roberts, Malinda Corona, Yusef Gomes and colleagues, with an educational [place] from [employer]. Thrive Questionnaire Date Thrive assessed: 05/12/24 I am a: Patient What is your living situation today?: I choose not to answer this question Within the past 12 months, did the food you bought not last and you didn't have the money to get more?: I choose not to answer this question Within the past 12 months, did you worry whether your food would run out before you got money to buy more?: I choose not to answer this question Do you have trouble paying for medicines?: No Do you have trouble getting transportation to medical appointments?: No Do you have trouble paying your heating and electricity bill?: No Do you have trouble taking care of your child, family member or friend?: No Do you have trouble with day-to-day activities such as bathing, preparing meals, shopping, managing finances, etc.?: No Are you currently unemployed and looking for a job?: No Are you interested in more education?: No Please select the resources that you would like help with: None Currently or been in a relationship where the following occur: I choose not to answer THRIVE Score: 0 AUDIT C Alcohol Use Questionnaire (AUDIT-C) 1. How often do you have a drink containing alcohol?: 4 or more times a week 2. How many drinks containing alcohol do you have on a typical day when you are drinking?: 7 to 9 3. How often do you have six or more drinks on one occasion?: Daily or almost daily Total Score: 11 Score Reviewed/Action Taken: Yes STEPHANIE-7 AMB Questionnaire STEPHANIE-7 Date STEPHANIE - 7 assessed: 05/12/24 Feeling nervous, anxious, or on edge: 1 = Several days Not being able to stop or control worryin = Not at all Worrying too much about different things: 1 = Several days Trouble relaxin = More than half the days Being so restless that it is hard to sit still: 2 = More than half the days Becoming easily annoyed or irritable: 3 = Nearly every day Feeling afraid as if something awful might happen: 0 = Not at all Total STEPHANIE-7 score (0-4 normal; 5-9 mild; 10-14 moderate; 15-21 severe): 9 Source: Developed by Drs. Hansel Roberts, Malinda Corona, Yusef Gomes and colleagues, with an educational [place] from [employer]. STEPHANIE-7 Assessment Billing STEPHANIE-7 Assessment Tool: STEPHANIE-7 Assessment 73257 Physical exam (Primary Care) Vital Signs: Last Vital Signs Pulse 92 05/12/24 14:18 Resp 18 05/12/24 14:18 BP 160/82 H 05/12/24 14:18 Pulse Ox 96 05/12/24 14:18 Oxygen Delivery Method Room Air 05/12/24 14:18 BMI result Body Mass Index 35.8 Tobacco/Smoking Status: Tobacco use Status Tobacco use date assessed 05/12/24 05/12/24 14:19 Patient Tobacco Use Status Never used Tobacco 05/12/24 14:19 e-Cigarette/Vaping Use Never Used 05/12/24 14:19 PHQ-9: PHQ-9 Score PHQ-9: Total score 8 05/12/24 15:22 Depression Screening Interpretation: Negative ([facility] denies any si or hi) Thrive Assessment: Date of Thrive Assessment Date Thrive assessed 05/12/24 05/12/24 14:19 Currently or been in a relationship where the following occur: I choose not to answer Coding Level of Care Code Est Pt Prev Care 40-64y(14371) Diagnoses Skin lesions L98.9 Physical exam Z00.00 HTN (hypertension) I10 Additional Codes STEPHANIE-7 Assessment Billing - STEPHANIE-7 Assessment Tool: STEPHANIE-7 Assessment 20883 ([id number]) PHQ-9 - 28464 - PHQ-9 Billing: Yes ([id number]) Assessment & Plan Assessment & Plan (1) Skin lesions: Code(s): L98.9 - Disorder of the skin and subcutaneous tissue, unspecified Category: Medical (2) Physical exam: Code(s): Z00.00 - Encounter for general adult medical examination without abnormal findings Category: Medical (3) HTN (hypertension): Code(s): I10 - Essential (primary) hypertension Category: Medical Plan . Orders: Orders Complete Blood Count Auto Diff Today Z00.00 - Encounter for general adult medical examination without abnormal findings Comprehensive [place]. Panel Fast Today Z00.00 - Encounter for general adult medical examination without abnormal findings TSH reflex Free T4 Today Z00.00 - Encounter for general adult medical examination without abnormal findings Lipid Panel Today Z00.00 - Encounter for general adult medical examination without abnormal findings UA CC w/rflx Micro + Cult Today Z00.00 - Encounter for general adult medical examination without abnormal findings Prostate Specific Antigen Scr Today Z00.00 - Encounter for general adult medical examination without abnormal findings Referrals Dermatology Referral L98.9 - Disorder of the skin and subcutaneous tissue, unspecified Medications: New prednisone 50 mg PO DAILY 5 days 5 tabs 2RF indomethacin do not take concurrently with prednisone 50 mg PO BID PRN 30 caps 0RF gout
[2024-05-12 15:25] VITALS: BP 164/88
--- OUTSIDE RECORDS SUMMARY | 2024-05-12 16:55 | XMS_ITS | Continuity of Care Document ---
Author Name [facility] Organization [facility] Care Team Providers Care Circus Roustabout Name Role Phone [facility] Unavailable Unavailable Problems Combined list of problems from Department of Defense and Veterans Affairs facilities. It does not include entries that were removed or entered in error. Problem Status Onset Date Problem Type Date of Resolution Comments Source Benign prostatic hyperplasia Active Condition Feb 20, 2024 Entered By: JORGE BROUSSARD Comment: Mild Enlargement per My ANGELINA in MAR 04: +Incomplete Emptying of Bladder [place] Bilateral hearing loss Active Condition Feb 20, 2024 Entered By: JORGE BROUSSARD Comment: and Tinnitus B/L [place] Chronic tension-type headache Active Condition Feb 20, 2024 Entered By: JORGE BROUSSARD Comment: Not Migrainous; Tension-Type ?; Happens About Twice Week;Feb 20, 2024 Entered By: JORGE BROUSSARD Comment: Resolve SpontaneouslyDe2023 Entered By: JORGE BROUSSARD Comment: Request CT of Brain in MAR 04 [place] Disorder of sleep-wake cycle Active Condition Feb 19 Entered By: JORGE BROUSSARD Comment: Trouble Falling Asleep; No S&S of DARON; Anxiety? Sees Mental Health [facility] Exposure to potentially hazardous substance Active Condition Feb 20, 2024 Entered By: JORGE BROUSSARD Comment: Burn Pit Exposure [place] ; Also Oil [employer] [place] Gastric reflux Active Condition Feb 092023 Entered By: JORGE BROUSSARD Comment: GERD; Affirmed by Diagnost EGD 2022; PPI Abates;Feb 20, 2024 Entered By: JORGE BROUSSARD Comment: No Gastric or Esophageal CA [place] History of reconstruction of anterior cruciate ligament tear Active Condition Feb 20, 2024 Entered By: JORGE BROUSSARD Comment: s/p ACL Repair, R Knee (Yr?) [place] Impaired cognition Active Condition Feb 20, 2024 Entered By: JORGE BROUSSARD Comment: New Memory Loss 2023 Entered By: JORGE BROUSSARD Comment: Also, Trouble Falling Asleep; No S&S of DARON;Feb 20, 2024 Entered By: JORGE BROUSSARD Comment: Underlying Anxiety?: Is Enrolled in Mental Health at [facility] 2024 Entered By: JORGE BROUSSARD Comment: CT, Brain, MAR 04: No Acute Intra-Cranila Proccesses;Mar 21, 2024 Entered By: JORGE BROUSSARD Comment: No Mass, Bleed, Shift or, Vascu Changes [place] Osteoarthritis of hip Active Condition Feb 20, 2024 Entered By: JORGE BROUSSARD Comment: s/p THR, L Side; (Yr?) [place] Pulmonary embolism Active Condition Feb 20, 2024 Entered By: JORGE BROUSSARD Comment: Dx PE 2019; Unprovoked; Preceded COVID Epidemic; Completed Course of a DOAG [place] Screening for malignant neoplasm of colon done Active Condition Feb 20, 2024 Entered By: JORGE BROUSSARD Comment: Last Screen Colonoscopy MAR 03; Neg CRC; Any Polyps? Repeat? He is Not SureDec 2023 Entered By: JORGE BROUSSARD Comment: EGD Done Same Time for the GERD; No Gastric or Esophageal CA [place] Suspected skin cancer Active Condition Feb 20, 2024 Entered By: JORGE BROUSSARD Comment: Saw Private DERM 2023; Lesions Excised Each Side Face;Feb 20, 2024 Entered By: JORGE BROUSSARD Comment: Path Report? [place] Under care of doctor Active Condition Feb 20, 2024 Entered By: JORGE BROUSSARD Comment: Dr Foy [phone] [place] Diagnosis: ICD-10-CM F43.12 Post-traumatic stress disorder, chronic Active Diagnosis [place] Diagnosis: ICD-10-CM I10 Essential (primary) hypertension Active Diagnosis [place] Diagnosis: ICD-10-CM Z71.89 Other specified counseling Active Diagnosis [place] Medications Combined list of outpatient medications from Department of Defense and Veterans Affairs facilities.Medications provided include 1) outpatient medications from the last 15 months, and 2) patient-reported medications. Medication Details Route Status Patient Instructions Prescription Expires Prescription Number Last Dispense Date Ordering Provider Order Date Order Qty Source ATORVASTATI N CA 40MG TAB TAKE ONE-HALF TABLET BY MOUTH ONCE DAILY ORAL ACTIVE GERARD BROUSSARD 2023 [facility] IELD IBUPROFEN 800MG TAB TAKE ONE TABLET BY MOUTH THREE TIMES DAILY NEEDED ORAL ACTIVE GERARD BROUSSARD 2023 [facility] IELD LISINOPRIL 20MG TAB TAKE ONE TABLET BY MOUTH ONCE DAILY ORAL ACTIVE GERARD BROUSSARD 2023 IELD PANTOPRAZOL E NA 20MG TAB,EC TAKE ONE TABLET BY MOUTH EVERY MORNING 30 MINUTES BEFORE BREAKFAS T ORAL ACTIVE GERARD BROUSSARD 2023 IELD SILDENAFIL CITRATE 100MG TAB TAKE ONE TABLET BY MOUTH DIRECTED FOR ERECTILE DYSFUNCT ION TAKE 1 HOUR PRIOR TO SEXUAL ACTIVITY ORAL ACTIVE 02/20/2025 [id number] GERARD BROUSSARD CONRADO 2023 18 IELD TAMSULOSIN HCL 0.4MG CAP TAKE ONE CAPSULE BY MOUTH BEDTIME FOR ENLARGED PROSTATE ORAL ACTIVE 02/20/2025 [id number] 4 GERARD BROUSSARD 2023 30 IELD Allergies, Adverse Reactions, Alerts Combined list of allergies from Department of Defense and Veterans Affairs facilities. It does not include entries that were removed or entered in error. Substance Category Reaction Severity Reaction type Status Date Reported Comments Source PENICILLIN Propensity to adverse reactions to drug (finding) Low blood pressure MODERATE active [facility] Immunizations Combined list of available immunizations from the Department of Defense and Veterans Affairs facilities. Immunization Series Date Given Administered By Site Reaction Lot Number CVX Code Drug Lead Embedded Software Engineer Status Comments Source INFLUENZA, SPLIT VIRUS, TRIVALENT, PF 2023 MICHILIZETH CARDOZAN Lotus LEFT DELTO ID [id number] complet ed [facility] Vital Signs Combined list of inpatient and outpatient Vital Signs from Department of Defense and Veterans Affairs, ranging from 12 months to all on record, depending upon the facility. Vital Sign Value Date Comments Source SYSTOLIC BLOOD PRESSURE 158 02/20/2024 11:10:15 [place] DIASTOLIC BLOOD PRESSURE 90 02/20/2024 11:10:15 [place] PULSE OXIMETRY 98 02/20/2024 11:10:15 [place] WEIGHT 247 02/20/2024 11:10:15 [facility] BMI 37 kg/m2 02/20/2024 11:10:15 [facility] HEIGHT 69 02/20/2024 11:10:15 [facility] TEMPERATURE 97.8 02/20/2024 11:10:15 [facility] PULSE 71 02/20/2024 11:10:15 [place] RESPIRATION 18 02/20/2024 11:10:15 [facility] Encounters Combined list of: 1) Encounters from Department of Veterans Affairs facilities going backup to the last 18 months, not all VA inpatient encounters are included; 2) Encounters from the Department of Defense facilities going backup to 280 months. Location Location Details Encounter Type Encounter Number Reason For Visit Attending Provider ADM Date DC Date Status Disposition Source [facility] Outpatient Encounter [id number] 04/04 [facility] Outpatient Encounter [id number] 01/09 [facility] Out[facility]counter [id number] 01/13 [facility] Out[facility]counter [id number] 01/15 [facility] Out[facility]counter [id number] 01/17 [facility] Encounter [id number] 1.02/19 [facility] [place] OFF/OP EST JULY X REQ PHY/QHP [id number] Diagnos is: ICD-10- CM Z71.89 Other specifi ed correctional classification counselor ANNMARIE Gilliland 02/19 [facility] NEW MOD 45 MIN [id number] 1BY. 03 Diagnos is: ICD-10- CM I10 Essenti al (primar y) hyperte GAURANG Tian 02/19 [facility] IELD [facility] Outpatient Encounter [id number] [facility] Encounter [id number] 1.03/03 [facility] [place] PSYCH DIAGNOSTIC EVALUATION [id number] Diagnos is: ICD-10- CM F43.12 Post-tr aumatic stress disorde r, chronic RAFY LYNCH G 03/28 [facility] IELD [facility] Outpatient Encounter [id number] 04/14 [facility] Outpatient Encounter [id number] 04/15 [facility] Social History Combined list of available smoking, tobacco, and other social history from Department of Defense and Veterans Affairs facilities. Social History Type Response Date Comment Sourc e Tobacco smoking status NHIS [place]-TOBACCO NEVER USED OTHER TYPE 02/20/2024 [place] History of tobacco use [place]-TOBACCO NEVER USED CIGARETTES 02/20/2024 [place] Plan of Care List of future care activities from Department of Veterans Affairs facilities. Additional future care activities may be listed in the Assessment and Plan section. Date/Time Care Activity Care Activity Detail Facili ty 05/26/2024 AMBULATORY - MEDICINE AMBULATORY - MEDICI NE [facility] 04/03/2024 Consult Order PSYCHOTHERAPY SO PC OUTPT Cons Water Leak Repairer's Choice [place]
--- OUTSIDE RECORDS SUMMARY | 2024-05-12 16:55 | XMS_ITS ---
Author Name [facility] Organization [facility] Address [address] [place] [address] Care Team Providers Care Assembler Musical Equipment Name Role Phone JORGE BROUSSARD Primary Care Provider [facility] e Insurance Providers: All historical and current Section Date Range: From patient's date of to the date document was created. This section includes the names of all active insurance providers for the patient. Insurance Provider Type of Coverage Plan Name Start of Policy Coverage End of Policy Coverage Group Number Member ID Insurance Provider's Telephone Number Policy Onofre's Name Patient's Relationship to Policy Onofre [facility] Apr 12, 2022 [id number] [phone] MIRANDA,AMY SPOUSE [facility] Apr 12, 2022 [id number] [phone] MIRANDADAMI SILVIAMARGARITA PATIENT Selected Encounter This section includes the information on record at [place] for the Encounter. Date/Time Encounter Type Encounter Description Reason Pro vider Source Apr 15, 2024 03:27 PM Outpatient Encounter PRIMARY CARE/MEDICINE IHE Encounter Template Text not used by [place] Plan of Treatment: Future Appointments (+ 6 months) and Future Tests (+/- 45 days) The Plan of Treatment section includes future care activities for the patient from all VA treatmentfacilities. This section includes future appointments and future orders which are active, pending or scheduled. Future Appointments This section includes appointments that were scheduled to occur 6 months from the date of the Encounter, up to a maximum of 20 appointments. The data comes from all [place] treatment facilities. Appointment Date/Time Appointment Type Appointme nt Facility Name May 26, 2024 10:30 AM AMBULATORY - MEDICINE [facility] Active, Pending, and Scheduled Orders This section includes a listing of several types of active, pending, and scheduled orders, including clinic medications orders, diagnostic test orders, procedure orders and consult orders; where the start date of the order is 45 days before the date of the Encounter or 45 days after the date of theEncounter. The data comes from all [place] treatment facilities. Test Date/Time Test Type Test Details Facility Name Apr 03, 2024 08:51 AM Consult Order PSYCHOTHER CHAYO SCHAEFER OUTPT Cons Preventive Maintenance Coordinator's Choice [place] Encounter Notes: All associated encounter notes This section contains the clinical notes associated to the Encounter. 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
--- OUTSIDE RECORDS SUMMARY | 2024-05-12 16:55 | XMS_ITS | Continuity of Care Document ---
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 His condition is steadily improving. Finding suggestive of meniscus tear versus mild MCL sprain versus acute arthritic flare. He has moderate to advanced posttraumatic arthritis on radiographs today. I reviewed all this with him and we discussed treatment options. He will remain out of work for his shifts for this upcoming week and combined with his upcoming days off he will return full duty on 05/14/24. Icing protocol reviewed. Questions invited and answered. Patient verbalizes understanding and agreement with plan. Patient was seen and evaluated by Jagdish Pool PA-C in indirect conjunction with Documenting Provider: Yoni Chu MD He/She agrees with history, physical examination, tests/diagnostic imaging, and treatment plan. Not available 05/11/2024 16:05:41 Plan of Treatment Reminders Order Date Submit Date Provider Last Modified By Organization Details Last Modified Time Details Appointments None record ed. Lab None record ed. Referral None record ed. Procedures None record ed. Surgeries None record ed. Imaging XR, knee, 3 view 025 04/25/19 denis 2 [facility], [address], [place], [address], 14:57:52 Medication Orders None record ed. Patient TargetsNo targets recorded. Patient Instructions Encounter Date Encounter Id Patient Instructions Last Modified By Organization Details Last Modified Time 04/25/2024 [id number] work status repo rt* - Return to full duty 05/14/24 soila Not available 04/25/2024 14:57:48 3 views of the r ight knee were obtained today 04/25/24 in the [facility] office. Evidence of ACL reconstruction. Metal button projects over the lateral femoral cortex in stable position. Moderate to advanced degenerative changes tricompartmentally including joint space narrowing, osteophyte formation and loose bodies. Patella tracks centrally. No acute fracture or dislocation appreciated. Findings: post traumatic osteoarthritis. Interpreted by: Jagdish Pool PA-C Not available 05/11/2024 16:09:07 Reason for Referral None Reported. Problems Name Problem SNOMED Code Status Onset Date Resolution Date Notes Provider Name and Address Organization Details Recorded Time Osteoarthri tis of right knee joint 7211082358632 00 Active 2024 JAGDISH POOL PA-C [address], [place], [address], [place] [facility], P 5 16:05:54 Gonarthrosi s of right knee due to and following trauma 5679725820 Active 2024 JAGDISH POOL PA-C [address], [place], [address], [place] [facility], P 5 16:05:59 Problem Notes None recorded. Procedures Surgical History Date Name Laterality Status Provider Name and Address Organization Details Recorded Time total replacement of hip completed Renee Plochocki [facility], P 05/12/2024 14:52:57 procedure on knee completed Renee Plochocki [facility], P 05/12/2024 14:53:08 Imaging Results None recorded. Procedure Notes None recorded. Medical Equipment None Reported. Allergies Allergen ID Allergen Name Allergen Category Reaction Reaction Severity Criticality Documentation Date Start Date Code Code System Note Provider Name and Address Organization Details Recorded Time 23992 Product containin g penicilli n (product) medicatio n Not available Not available Not available 05/12/2024 59052 8001 SNOMED Renee Plochocki null, [place] [facility], P 14:51:35 85456 blue dye medicatio n Not available Not available Not available 05/12/2024 62177 UNK Renee Ruiz null, [place] [facility], P 14:51:41 Medications Name Sig Start Date Stop Date Status Note LastModified by Organization Details LastModified Time atorvastatin 20 mg tablet TAKE 1 TABLET BY MOUTH EVERY DAY active Not Available Not Available No t Available lisinopril 20 mg tablet TAKE 1 TABLET BY MOUTH DAILY active Not Available Not Available No t Available pantoprazole 20 mg tablet,delayed release TAKE 2 TABLETS BY MOUTH TWICE A DAY active Not Available Not Available No t Available meloxicam 7.5 mg tablet TAKE 1 TABLET BY MOUTH EVERY DAY FOR 2 WEEKS active Not Available Not Available No t Available tamsulosin 0.4 mg capsule active Not Available Not Available N ot Available Vitals None Recorded Social History Question Answer Notes LastModified by Organizat ion Details LastModified Time Tobacco Smoking Status Never Smoker Renee Ruiz [facility], [place] [facility], [facility] 05/12/2024 14:52:48 What Is Your Level Of Alcohol Consumption? Heavy Information not available 05/12/2024 Do You Use Any Illicit Or Recreational Drugs? Yes Information not available 05/12/2024 Do You Or Have You Ever Used Any Other Forms Of Tobacco Or Nicotine? No Information not available 05/12/2024 Sex: Unknown Functional Status None recorded. Mental Status None recorded. Family History Relationship Description Onset Age of this Age Resolved Age Notes LastModified by Organization Details LastModified Time Mother Arthritis aplochocki Not availa ble 05/12/2024 14:51:52 Mother Hyperlipidem ia aplochocki Not available 05/12 14:52:00 Mother Hypertensive disorder aplochocki Not available 05/12 14:52:09 Medical History Condition Response Gout Y Bleeding Disorder Y Reflux/GERD Y Hypertension Y Past Encounters Encounter ID Performer Location Encounter Start Date Encounter Closed Date Diagnosis/Indication Diagnosis SNOMED-CT Code Diagnosis ICD10 Code Diagnosis Note [id number] MD GAYLA Urban [address] [place] [address] [place] [address] 04/25/2024 14:16:03 04/25/2024 14:57:51 Pain of right knee joint [id number] 83770 M25.561 Gonarthros is of right knee due to and following trauma 6276056403 M17.31 History of reconstruction of anterior cruciate ligament tear 891903127 Z98.890 Health Concerns Section Related Observation LastModified by Organization Detai ls LastModified Time None Recorded Concern Status LastModified by Organization Details LastModified Time None Recorded Payers Encounter Date Sequence Insurance Name Policy Number Policy Onofre Covered Member ID Onofre Member ID Guarantor Name 04/25/2024 [facility] Jero Peña Notes Date Note Type Note Provider Name and Address Organization Details Recorded Time 04/25/2024 text/html 59-year-old male presents to the office today for evaluation of acute right knee pain following injury while at work onto 04/17/24. 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 He suffered a twisting injury when he slipped in snow. Symptoms are steadily improving. At this point he rates pain a 2/10. He denies significant swelling. Some occasional sensations of weakness. Denies radiation of pain. He has been treating with ice and NSAIDs.He reports a history of right ACL surgery many years ago.He has been out of work activities and reports he has scheduled time away from work the week of the . He has a history of DVT, gout, high blood pressure, acid reflux. Never smoker. Reports he drinks 30 beers per week. Denies nicotine or drug use. JAGDISH POOL PA-C [address], [place], [address], [place] [facility] 05/11/2024 16:09:34
--- OUTSIDE RECORDS SUMMARY | 2024-05-12 16:55 | XMS_ITS ---
Author Name [facility] Organization [facility] Address [address] [place] [address] Care Team Providers Care Pleat Patternmaker Name Role Phone JORGE BROUSSARD Primary Care Provider [facility] e Insurance Providers: All historical and current [...] Onofre's Name Patient's Relationship to Policy Onofre [facility] Apr 12, 2022 [id number] [phone] MIRANDA,AMY SPOUSE [facility] Apr 12, 2022 [id number] DAMI JEAN SILVIAMARGARITA PATIENT Selected Encounter This section includes the information on record at [place] for the Encounter. Date/Time Encounter Type Encounter Description Reason Pro vider Source Apr 14, 2024 12:34 PM Outpatient Encounter PRIMARY CARE/MEDICINE IHE Encounter Template Text not used by [place] Plan of Treatment: Future Appointments (+ 6 [...] 20 appointments. The data comes from all [place] treatment facilities. Appointment Date/Time Appointment Type Appointme nt Facility Name May 26, 2024 10:30 AM AM[facility]ULATORY [place] MEDICINE [facility] Active, Pending, [...] of theEncounter. The data comes from all [place] treatment facilities. Test Date/Time Test Type Test Details Facility Name Apr 03, 2024 08:51 AM Consult Order PSYCHOTHER CHAYO SCHAEFER OUTPT Cons Obstetrics Gyn's Choice [place] Encounter Notes: All associated encounter notes This section contains the clinical notes associated to the Encounter. Date/Time Encounter Note(s) Provider Source Apr 14, 2024 12:34 PM PRIMARY CARE TELEP AURELIA ENCOUNTER NOTE: LOCAL TITLE: TELEPHONE NOTE/PRIMARY CARE STANDARD TITLE: PRIMARY CARE TELEPHONE ENCOUNTER NOTE DATE OF NOTE: APR 14, 2024@12:34 ENTRY DATE: APR 14, 2024@12:34:10 AUTHOR: BLACK OVALLE EXP COSIGNER: URGENCY: STATUS: COMPLETED AMSA CALLED TO REMIND OF UPCOMING APPOINTMENT. /rosey/ BLACK OVALLE ADVANCED GENERAL CAR SUPERVISOR YARD Signed: 04/14/2024 12:36 BLACK OVALLE
== END 2024-05-12 15:31 | disposition home or self-care (01) ==
PROVIDERS: PCP Nurse Practitioner Family; Visit Provider Nurse Practitioner Family
DX: L98.9 Disorder of the skin and subcutaneous tissue, unspecified (principal); Z00.00 Encounter for general adult medical examination without abnormal findings; I10 Essential (primary) hypertension

== ENCOUNTER → 2024-05-12 14:07 | Outpatient (BNVA) | payer BC, OTHER, SELFPAY | PROVIDERS: PCP Nurse Practitioner Family; Visit Provider Nurse Practitioner Family | DX: Z00.01 Encounter for general adult medical examination with abnormal findings (principal); L98.9 Disorder of the skin and subcutaneous tissue, unspecified; I10 Essential (primary) hypertension; N40.1 Benign prostatic hyperplasia with lower urinary tract symptoms; R35.0 Frequency of micturition | CPT/HCPCS: 96127 ==

== ENCOUNTER 2024-05-23 08:13 | Outpatient (REF) | payer BC, OTHER, SELFPAY | END 2024-05-23 08:14 | disposition home or self-care (01) | LOC: HO.HOSX 08:13 | PROVIDERS: Visit Provider Physician Assistant | DX: Z13.89 Encounter for screening for other disorder (principal) ==

== ENCOUNTER 2024-07-18 07:19 | Outpatient (REF) | payer BC, OTHER, SELFPAY ==
--- OUTSIDE RECORDS SUMMARY | 2024-07-18 07:22 | XMS_ITS | Continuity of Care Document ---
Author Name [facility] Organization [facility] Care Team Providers Care Talking Books Library Clerk Name Role Phone [facility] Unavailable Unavailable Problems Combined list of problems from Department of Defense and Veterans Affairs facilities. It does not include entries that were removed or entered in error. Problem Status Onset Date Problem Type Date of Resolution Comments Source Alcohol abuse Active Condition [facility] Benign prostatic hyperplasia Active Condition Feb 20, 2024 Entered By: JORGE BROUSSARD Comment: Mild Enlargement per My ANGELINA in MAR 04: +Incomplete Emptying of Bladder [place] Bilateral hearing loss Active Condition Feb 20, 2024 Entered By: JORGE BROUSSARD Comment: and Tinnitus B/L [place] Chronic tension-type headache Active Condition Feb 20, 2024 Entered By: JORGE BROUSSARD Comment: Not Migrainous; Tension-Type ?; Happens About Twice Week; [place] Colonoscopy Screening Active Condition May 26, 2024 Entered By: HAKAN CLOUD Comment: 02/2023 - report unavailableDe2023 Entered By: JORGE BROUSSARD Comment: EGD Done Same Time for the GERD; No Gastric or Esophageal CA [place] Exposure to potentially hazardous substance Active Condition Feb 20, 2024 Entered By: JORGE BROUSSARD Comment: Burn Pit Exposure [place] ; 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 Oil [employer] [place] Gastric reflux Active Condition May 102024 Entered By: HAKAN CLOUD Comment: EGD 02/2023; neg [place] History of pulmonary embolism Active Condition Feb 20, 2024 Entered By: JORGE BROUSSARD Comment: Dx PE 2019; Unprovoked; Preceded COVID Epidemic; Completed Course of a DOAG [place] History of reconstruction of anterior cruciate ligament tear Active Condition Feb 20, 2024 Entered By: JORGE BROUSSARD Comment: s/p ACL Repair, R Knee (Yr?) [place] 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 Feb 20, 2024 Entered By: JORGE BROUSSARD Comment: s/p THR, L Side; (Yr?) [place] Hyperlipidemia Active Condition [place] Hypertension Active Condition [place] Impaired cognition Active Condition Feb 20, 2024 Entered By: JORGE BROUSSARD Comment: New Memory Loss 2024 Entered By: HAKAN CLOUD Comment: CT, Brain, MAR 04: negative/WNL [place] NonVA Providers Active Condition May 26, 2024 Entered By: HAKAN CLOUD Comment: PCP - Jorge Foy NP - Mehran - [phone] [place] Obesity Active Condition [place] Posttraumatic stress disorder Active Condition [place] Suspected skin cancer Active Condition Feb 20, 2024 Entered By: JORGE BROUSSARD Comment: Saw Private DERM 2023; Lesions Excised Each Side Face; [place] Diagnosis: ICD-10-CM I10 Essential (primary) hypertension Active Diagnosis [place] Diagnosis: ICD-10-CM F43.12 Post-traumatic stress disorder, chronic Active Diagnosis [place] Diagnosis: ICD-10-CM Z71.89 Other specified counseling Active Diagnosis [place] Medications Combined list of outpatient medications from [...] MOUTH ONCE DAILY ORAL ACTIVE GERARD BROUSSARD spring IELD IBUPROFEN 800MG TAB TAKE ONE TABLET BY MOUTH THREE TIMES DAILY NEEDED ORAL ACTIVE GERARD BROUSSARD [address] [facility] IELD LISINOPRIL 20MG TAB TAKE ONE TABLET BY MOUTH ONCE DAILY ORAL ACTIVE GERARD BROUSSARD [address] [facility] IELD PANTOPRAZOL E NA 20MG TAB,EC TAKE ONE TABLET BY MOUTH EVERY MORNING 30 MINUTES BEFORE BREAKFAS T ORAL ACTIVE GERARD BROUSSARD [address] [facility] IELD SILDENAFIL CITRATE 100MG TAB TAKE ONE TABLET BY MOUTH DIRECTED FOR ERECTILE DYSFUNCT ION TAKE 1 HOUR PRIOR TO SEXUAL ACTIVITY ORAL ACTIVE 02/20/[id number] 4 GERARD BROUSSARD 2023 18 IELD TAMSULOSIN HCL 0.4MG CAP TAKE ONE CAPSULE BY MOUTH BEDTIME FOR ENLARGED PROSTATE ORAL DISCONT INUED BY GURWINDER R 02/20/2025 [id number] GERARD BROUSSARD [address] [facility] IELD Allergies, Adverse Reactions, Alerts Combined list of allergies from Department of Defense and Veterans Affairs facilities. It does not include entries that were removed or entered in error. Substance Category Reaction Severity Reaction type Status Date Reported Comments Source PENICILLIN Propensity to adverse reactions to drug (finding) Low blood pressure MODERATE active [facility] Immunizations Combined list of available immunizations from the Department of Defense and Veterans Affairs facilities. Immunization Series Date Given Administered By Site Reaction Lot Number CVX Code Drug Loan Examiner Status Comments Source INFLUENZA, SPLIT VIRUS, TRIVALENT, PF 2023 LIZETH SIMON LEFT DELTO ID [id number] complet ed ADMINISTE [place], [facility] IELD Vital Signs Combined list of inpatient and outpatient Vital Signs from Department of Defense and Veterans Affairs, ranging from 12 months to all on record, depending upon the facility. Vital Sign Value Date Comments Source SYSTOLIC BLOOD PRESSURE 166 05/27/19 25 10:42:01 [facility] DIASTOLIC BLOOD PRESSURE 90 025 10:42:01 [facility] PULSE OXIMETRY 97 05/26/2024 10:42:01 [facility] WEIGHT 249.6 05/26/2024 10:42:01 [facility] BMI 37 kg/m2 05/26/2024 10:42:01 [facility] PAIN 0 05/26/2024 10:42:01 [facility] HEIGHT 69 05/26/2024 10:42:01 [facility] TEMPERATURE 98.4 05/26/2024 10:42:01 [facility] PULSE 91 05/26/2024 10:42:01 [facility] RESPIRATION 18 05/26/2024 10:42:01 [place] [facility] SYSTOLIC BLOOD PRESSURE 158 02/20/20 24 11:10:15 [place] DIASTOLIC BLOOD PRESSURE 90 12/11/2 024 11:10:15 [place] PULSE OXIMETRY 98 02/20/2024 11:10:15 [place] WEIGHT 247 02/20/2024 11:10:15 [place] BMI 37 kg/m2 02/20/2024 11:10:15 [place] HEIGHT 69 02/20/2024 11:10:15 [place] TEMPERATURE 97.8 02/20/2024 11:10:15 [place] PULSE 71 02/20/2024 11:10:15 [place] RESPIRATION 18 02/20/2024 11:10:15 [place] Encounters Combined list of: 1) Encounters from [...] [facility] [id number] 02/06 [facility] [id number] 04/04 [facility] [id number] 01/09 [facility]counter [id number] 01/13 [facility] [id number] 01/15 [facility] [id number] 01/17 [facility] En[facility] [id number] 02/19 [facility] [place] OFF/OP EST MAY X REQ PHY/QHP [id number] Diagnos is: ICD-10- CM Z71.89 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 03 Diagnos is: ICD-10- CM I10 Essenti al (primar y) hyperte GAURANG Tian 02/19 [facility] IE [facility] Outpatient Encounter [id number] 03/03 [facility] Outpatient Encounter [id number] 03/03 [facility] [id number] Diagnos is: ICD-10- CM F43.12 Post-tr aumatic stress disorde r, chronic RAFY LYNCH 03/28 [facility] IELD [facility] Outpatient Encounter [id number] [facility] Outpatient Encounter [id number] [facility] Outpatient Encounter [id number] 04/21 [facility] OFFICE O/P EST MOD 30 MIN [id number] Diagnos is: ICD-10- CM I10 Essenti al (primar y) hyperte GENEVA Bernal 05/26 [facility] Social History Combined list of available smoking, tobacco, and other social history from Department of Defense and Veterans Affairs facilities. Social History Type Response Date Comment [facility] Tobacco smoking status [facility]-TOBAC[facility] NEVER USED CIGARETTES 02/20/2024 [place] History of tobacco use [facility] NEVER USED OTHER TYPE 02/20/2024 [place] Plan of Care List of future care activities from Department of Veterans Affairs facilities. Additional future care activities may be listed in the Assessment and Plan section. Date/Time Care Activity Care Activity Detail Facili ty 08/13/2024 AMBULATORY - PSYCHIATRY AMBULATORY - PSYC [facility]
--- OUTSIDE RECORDS SUMMARY | 2024-07-18 07:22 | XMS_ITS | Data Portability ---
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 [...] view 025 04/25/19 denis 2 [facility], [address], [place], [address], 14:57:52 Medication Orders None record ed. Patient TargetsNo targets recorded. Patient Instructions Encounter Date Encounter Id Patient Instructions Last Modified By Organization Details Last Modified Time 04/25/2024 [id number] work status repo rt* - Return to full duty 05/14/24 [email or web address] Not available 04/25/2024 14:57:48 3 views of the r ight knee were obtained today 04/25/24 in the [place] office. Evidence of ACL reconstruction. Metal button [...] Time Osteoarthri tis of right knee joint [id number] 00 Active 2024 JAGDISH POOL PA-C [address], [place], [address], [place] [facility], P 16:05:54 Gonarthrosi s of right knee due to and following trauma 3505258615 Active 2024 JAGDISH POOL PA-C [address], [place], [address], [place] [facility], [facility] 5 16:05:59 Problem Notes None recorded. Procedures Surgical History Date Name Laterality Status Provider Name and Address Organization Details Recorded Time total replacement of hip completed Renee Plochocki [place] [facility], [facility] 05/12/2024 14:52:57 procedure on knee completed Renee Plochocki [place] [facility], [facility] 05/12/2024 14:53:08 Imaging Results None recorded. Procedure Notes None recorded. Medical Equipment None Reported. Allergies Allergen ID Allergen Name Allergen Category Reaction Reaction Severity Criticality Documentation Date Start Date Code Code System Note Provider Name and Address Organization Details Recorded Time 80346 Product containin g penicilli n (product) medicatio n Not available Not available Not available 05/12/2024 93899 8001 SNOMED Renee Plochocki null, [place] [facility], [facility] 14:51:35 96406 blue dye medicatio n Not available Not available Not available 05/12/202419788 UNK Renee Ruiz [facility], [facility], P 14:51:41 Medications Name Sig Start Date [...] Available Not Available N ot Available Vitals Date Recorded Body height Body mass index (BMI) Body weight Provider Name and Address Organization Details Last Updated DateTime 05/12/2024 180.34 cm 33.5 kg/m2 086100.[address] [facility], [facility] 05/12/2024 14:51:15 Social History Question Answer Notes LastModified by Organizat ion Details LastModified Time Tobacco Smoking Status Never Smoker Renee Ruiz [facility], [facility], P 05/12/2024 14:52:48 What Is Your Level [...] SNOMED-CT Code Diagnosis ICD10 Code Diagnosis Note [id number] KAYLEE FELIX [address] [place] [address] 04/25/2024 14:16:03 04/25/2024 14:57:51 Pain of right knee joint [id number] 90978 M25.561 Gonarthros is of right knee due to and following trauma 4083349274 M17.31 History of reconstruction of anterior cruciate ligament tear [id number] Z98.890 Health Concerns Section Related Observation LastModified by Organization Detai ls LastModified Time None Recorded Concern Status LastModified by Organization Details LastModified Time None Recorded Advance Directives Directive None Recorded Payers Encounter Date Sequence Insurance Name Policy Number Policy Onofre Covered Member ID Onofre Member ID Guarantor Name 04/25/2024 [facility] Department Jero Peña Notes Date Note Type Note Provider Name and Address Organization Details Recorded Time 04/25/2024 text/html 59-year-old male presents to the office today for evaluation of acute right knee pain following injury while at work onto 04/17/24. 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 He suffered a twisting injury when he [...] JAGDISH POOL PA-C [address], [place], [address], [place] [facility], [facility] 05/11/2024 16:09:34
--- OUTSIDE RECORDS SUMMARY | 2024-07-18 07:22 | XMS_ITS | Encounter Summary ---
Author Name [facility] [place] Address [address] [place] [id number] Care Team Providers Care Carpet Repairer Name Role Phone HAKAN CLOUD Primary Care Provider Unavailabl e Insurance Providers: All historical and current [...] Onofre's Name Patient's Relationship to Policy Onofre [facility] Apr 12, 2022 [id number] [phone] STEFANI JEAN SPOUSE [place] [facility] Apr 12, 2022 [id number] DAMI JEAN PATIENT Selected Encounter This section includes the information on record at [place] for the Encounter. Date/Time Encounter Type Encounter Description Reason Provider Source May 26, 2024 10:30 AM OFFICE O/P EST MOD 30 MIN PRIMARY CARE/MEDICINE ICD-10-CM I10 Essential (primary) hypertension HAKAN CLOUD Encounter Template Text not used by [place] Assessments - Encounter Diagnoses This section includes the primary and secondary diagnoses documented for the Encounter. Date/Time Primary/Secondary Diagnosis Diagnosis Name Provider Source Jun 10, 2024 10:55 AM PRIMARY Essential (primary) hypertension HAKAN CLOUDFIELD Plan of Treatment: Future Appointments (+ 6 months) and Future Tests (+/- 45 days) The Plan of Treatment section includes future care activities for the patient [facility] This section includes future appointments and future orders which are active, pending or scheduled. Future Appointments This section includes appointments that were scheduled to occur 6 months from the date of the Encounter, up to a maximum of 20 appointments. The data comes from all [place] treatment facilities. Appointment Date/Time Appointment Type Appointme nt Facility Name Aug 13, 2024 08:30 AM AMBULATORY - PSYCHIATRY [facility] Social History: Smoking Status (Most current) and Tobacco Use (All prior to encounter date) This section includes the most current, and the historical, smoking and tobacco- related health factors from the [place] facility where the Encounter took place. Current Smoking Status This section includes the most current smoking, or tobacco-related health factor, from the [place] facility where the Encounter took place. Date/Time Current Smoking Status Comment Facil ity Feb 20, 2024 11:00 AM PA-TOBACCO NEVER USED CIGARETTES [place] Tobacco Use History This section includes a history of the smoking, or tobacco-related health factors, that were collected on or before the date of the Encounter. The data comes from the [place] facility where the Encounter took place. Date/Time Smoking Status/Tobacco Use Comment F acility Feb 20, 2024 11:00 AM PA-TOBACCO NEVER USED OTHER TYPE [place] Encounter Notes: All associated encounter notes This section contains the clinical notes associated to the Encounter. Date/Time Encounter Note(s) Provider Source May 26, 2024 10:42 AM PREVENTIVE MEDICIN E NURSING NOTE: LOCAL TITLE: CLINICAL REMINDERS/NURSING STANDARD TITLE: PREVENTIVE MEDICINE NURSING NOTE DATE OF NOTE: MAY 26, 2024@10:42 ENTRY DATE: MAY 26, 2024@10:43:02 AUTHOR: MEHRAN SANCHEZ EXP COSIGNER: URGENCY: STATUS: COMPLETED Pneumococcal Conjugate Vaccine (PCV15/PCV20/PCV21): Refuses PCV vaccine Immunization: PNEUMOCOCCAL CONJUGATE, UNSPECIFIED FORMULATION Refusal Reason: PATIENT DECISION Patient refuses all immunization(s) in the PneumoPCV group Date Documented: 05/26/24 10:43 COVID-19 Immunization: Refused Moderna Monovalent COVID-19 vaccine Immunization: COVID-19 (MODERNA), MRNA, LNP-S, PF, 50 MCG/0.5 ML (AGES 12+ YEARS) Refusal Reason: PATIENT DECISION Patient refuses all immunization(s) in the COVID-19 group Date Documented: 05/26/24 10:43 Tdap Immunization: The patient declines to receive the recommended dose of Tdap vaccine. Immunization: TDAP Refusal Reason: PATIENT DECISION Patient refuses all immunization(s) in the TDAP group Date Documented: 05/26/24 10:43 Herpes Zoster (Shingles) Vaccine: The patient declines to receive the recommended dose of zoster (shingles) vaccine. Immunization: ZOSTER RECOMBINANT Refusal Reason: PATIENT DECISION Patient refuses all immunization(s) in the ZOSTER group Date Documented: 05/26/24 10:43 /rosey/ MEHRAN SANCHEZ LPN PACT 10 Signed: 05/26/2024 10:44 MEHRAN SANCHEZ [place] May 26, 2024 06:10 AM PHYSICIAN NOTE: LOCAL TITLE: MD NOTE STANDARD TITLE: PHYSICIAN NOTE DATE OF NOTE: MAY 26, 2024@06:10 ENTRY DATE: MAY 26, 2024@06:10:31 AUTHOR: HAKAN CLOUD EXP COSIGNER: URGENCY: STATUS: COMPLETED HISTORY OF PRESENT ILLNESS: TEMI JEAN is a 59 yo MALE who presents at the [facility] as a transfer from Mr Muñiz's panel whom he last saw on 02/20/24 as an initial new patient visit. Pt maintains a nonVA PCP: Mr Daniel Foy EXECUTIVE DIRECTOR OF MARKETING in [place]. NonVA Providers: Dermatology: Gastroenterology: Active problems - Computerized Problem List is the source for the followin. Posttraumatic stress disorder 2. Alcohol abuse 3. Colonoscopy Screening 4. History of reconstruction of anterior cruciate ligament tear 5. History of total replacement of left hip joint 6. Impaired cognition 7. Suspected skin cancer 8. Bilateral hearing loss 9. History of pulmonary embolism 10. NonVA Providers 11. Exposure to potentially hazardous substance 12. Chronic tension-type headache 13. Gastric reflux 14. Benign prostatic hyperplasia Active and Recently Outpatient Medications (including Supplies): Active Outpatient Medications Status 1) SILDENAFIL CITRATE 100MG TAB TAKE ONE TABLET BY MOUTH ACTIVE DIRECTED TAKE 1 HOUR PRIOR TO SEXUAL ACTIVITY Indication: FOR ERECTILE DYSFUNCTION Active Non-VA Medications Status 1) Non-VA ATORVASTATIN CALCIUM 40MG TAB 20MG BY MOUTH ONCE ACTIVE DAILY 2) Non-VA IBUPROFEN 800MG TAB 800MG BY MOUTH THREE TIMES DAILY ACTIVE NEEDED 3) Non-VA LISINOPRIL 20MG TAB 20MG BY MOUTH ONCE DAILY ACTIVE 4) Non-VA PANTOPRAZOLE NA 20MG EC TAB 20MG BY MOUTH EVERY ACTIVE MORNING 30 MINUTES BEFORE BREAKFAST 5 Total Medications ALLERGIES: ========= PENICILLIN HISTORY: PERIOD OF SERVICE - [employer] FROM Jan TO July COMBAT SERVICE INDICATED: No VITAL SIGNS: Blood Pressure 152/90 (05/26/2024 10:42) Repeat BP: 142/86 Pulse 91 (05/26/2024 10:42) Respiration 18 (05/26/2024 10:42) Pulse Oximetry 97% (05/26/2024 10:42) Temperature 98.4 F [36.9 C] (05/26/2024 10:42) Pain 0 (05/26/2024 10:42) Height 69 in [175.3 cm] (05/26/2024 10:42) Weight 249.6 lb [113.22 kg] (05/26/2024 10:42) BMI BMI: 36.9 REVIEW OF SYSTEMS: ENT: No sore throat, no cough CARDIOVASCULAR: No chest pain, no palps RESPIRATORY: No SOB, no wheezing GASTROINTESTINAL: No abd pain, no N/V/D MUSCULOSKELETAL: No joint pain NEUROLOGIC: No H/A, no weakness EXAMINATION: GENERAL: WD/WN in NAD HEENT: Moist mucosa NECK: Supple HEART: RRR, S1-S2, no murmurs LUNGS: CTA B/L ABDOMEN: Soft, NT/ND EXTREMITIES: FROM x 4 ASSESSMENT/PLAN: 1. Hypertension: on lisinopril 20mg/day 2. Hyperlipidemia: on atorvastatin 20mg/QHS 3. BPH: Mr Muñiz started tamsulosin 0.4mg/day on 02/20/24, however this does not help him at all so he stopped it, he c/o urinary frequency, he drinks over a gallon of water a day and drinks ETOH daily which is a diuretic 4. Erectile Dysfunction: Mr Muñiz started sildenafil 100mg/day on 02/20/24 5. GERD: on pantoprazole 20mg/day 6. Colonoscopy Screening: managed by nonVA PCP 7. PTSD: managed by [facility] MH 8. Alcohol Abuse: managed by [facility], drinks 6-8 beers/night, long discussion about the need to stop ETOH and the health risks associated with it 9. Obesity: BMI ~37, encouraged wt loss FOLLOW UP: 1 year - Annual - bring MiniA PCP labs ========= UPCOMING APPOINTMENTS: 07/15/2024 08:30 [facility] EXECUTIVE DIRECTOR OF MARKETING 1 No barriers; Patient understands and agrees to current treatment plan. If pt has any questions, concerns, or changes in current health status he/she will call or come in to the [facility]. Medication Reconciliation: Outpatient: Has the patient been taking medications as documented in the EMLR? YES: The patient has been taking medications as documented in the EMLR. Essential Medication List for Review used to complete this medication reconciliation. INCLUDED IN THIS LIST: Alphabetical list of active outpatient prescriptions dispensed from this [place] (local) and dispensed from another [place] or DoD facility (remote) as well as inpatient orders (local, pending and active), local clinic medications, locally documented non-VA medications, and local prescriptions that have or been discontinued in the past 90 days. - All changes in medications, including all non-VA/Herbal/OTC medications were entered into CPRS. - If there were any medications the patient should no longer take, they were discontinued. - The patient/caregiver was instructed to update this list, discard old lists, and take this list to the next appointment, whether with a VA or non-VA provider. JLV Link Data on this list may not be complete. Please check JLV. Allergies/ADRs (Tool #5) FACILITY ALLERGY/ADR -------- No Remote Allergy/ADR Data available for this patient [facility] [place] [facility] [place] [facility] Med Recon NoGlossary (Tool #1) INCLUDED IN THIS LIST: Alphabetical list of active outpatient prescriptions dispensed from this VA (local) and dispensed from another VA or DoD facility (remote) as well as inpatient orders (local pending and active), local clinic medications, locally documented non-VA medications, and local prescriptions that have or been discontinued in the past 90 days. Non-VA Meds Last Documented On: Feb 20, 2024 NOTE The display of VA prescriptions dispensed from another VA or DoD facility (remote) is limited to active outpatient prescription entries matched to National Drug File at the originating site and may not include some items such as investigational drugs, compounds, etc. NOT INCLUDED IN THIS LIST: Medications self-entered by the patient into personal health records (i.e. [employer]) are NOT included in this list. Non-VA medications documented outside this [place], remote inpatient orders (regardless of status) and remote clinic medications are NOT included in this list. The patient and provider must always discuss medications the patient is taking, regardless of where the medication was dispensed or obtained. ------ Non-VA ATORVASTATIN CALCIUM 40MG TAB TAKE ONE-HALF TABLET BY MOUTH ONCE DAILY Non-VA IBUPROFEN 800MG TAB TAKE ONE TABLET BY MOUTH THREE TIMES DAILY NEEDED Non-VA LISINOPRIL 20MG TAB TAKE ONE TABLET BY MOUTH ONCE DAILY Non-VA PANTOPRAZOLE NA 20MG EC TAB TAKE ONE TABLET BY MOUTH EVERY MORNING 30 MINUTES BEFORE BREAKFAST OUTPT SILDENAFIL CITRATE 100MG TAB (Status = Active) TAKE ONE TABLET BY MOUTH DIRECTED FOR ERECTILE DYSFUNCTION TAKE 1 HOUR PRIOR TO SEXUAL ACTIVITY Rx# [id number] Last Released: 02/21/24 Qty/Days Supply: Rx Expiration Date: 02/20/25 Refills Remainin Indication: FOR ERECTILE DYSFUNCTION ------ SUPPLIES ------ /rosey/ HAKAN CLOUD MD Primary Care Physician Signed: 05/26/2024 11:46 HAKAN CLOUD [place]
--- OUTSIDE RECORDS SUMMARY | 2024-07-18 07:22 | XMS_ITS ---
Author Name [facility] Organization Unknown History of Medication Use Medication Directions Dispensed Refills Start Date End Date Stat us atorvastatin 20 mg tablet TAKE 1 TABLET BY MOUTH EVERY DAY active lisinopril 20 mg tablet TAKE 1 TABLET BY MOUTH DAILY active meloxicam 7.5 mg tablet TAKE 1 TABLET BY MOUTH EVERY DAY FOR 2 WEEKS active pantoprazole 20 mg tablet,delayed release TAKE 2 TABLETS BY MOUTH TWICE A DAY active tamsulosin 0.4 mg capsule active Problems Problem Status Onset Date Problem Type Date of Resoluti on Source Gonarthrosis of right knee due to and following trauma active 2024-05-11 ProblemAct [facility] Osteoarthritis of right knee joint active 2024-05-11 ProblemAct [facility] Encounters Encounter Type Encounter Reason Primary Diagnosis Location Date Ambulatory [facility] [place] 05/12/2024 Ambulatory [facility] [place] 04/25/2024 Ambulatory [facility] [place] 04/25/2024 Ambulatory [facility] [place] 04/24/2024 Ambulatory [facility] [place] 04[facility]24/2024 Ambulatory [facility] [place] 04/24/2024
[2024-07-18 09:56] LABS: MANUAL DIFF FLAG NO
[2024-07-18 10:00] LABS: Appearance Urine Clear; Color Urine Yellow; Glucose Urine UA Negative (Negative); Leukocyte Esterase Urine Trace (Negative); Nitrite Urine Negative (Negative); PH 5.5 (5.0-9.0); Specific Gravity - Urine 1.015 (1.005-1.025); UMIC TRIGGER UACC YES; Urine Blood Negative (Negative); Urine Ketones Negative (Negative); Urine Protein Negative (Neg-Trace)
[2024-07-18 10:03] LABS: Bacteria Urine None Seen (None Seen); Hyaline Casts Urine 0-2 /LPF (0-2); RBC Urine 0-2 /HPF (0-2); Squamous Epithelial Cell Urine 0-2 /HPF (0-2); WBC Urine 0-5 /HPF (0-5)
[2024-07-18 10:09] LABS: Basophils Percent Auto 0.4 % (0-2); Eosinophils Absolute Auto 0.1 X10*3/uL (0.0-0.4); Eosinophils Percent Auto 1.6 % (0-4); Hematocrit 42.4 % (42.0-52.0); Hemoglobin 14.5 g/dl (14.0-18.0); Imm Gran Abs Auto 0.03 X10*3/uL (0.00-0.03); Imm Gran Pct Auto 0.6 % (0.0-0.4); Lymphocytes Percent Auto 38.9 % (20-40); Mean Corpuscular HGB Conc 34.2 g/dl (31.0-36.0); Mean Corpuscular Hemoglobin 29.9 pg (27.0-33.0); Mean Corpuscular Volume 87.4 fL (80.0-98.0); Mean Platelet Volume 9.9 fL (9.4-12.4); Monocytes Absolute Auto 0.4 X10*3/uL (0.1-1.2); Monocytes Percent Auto 7.5 % (2-11); Neutrophils Absolute Auto 2.6 x10*3/uL (2.0-8.3); Platelet Count 254 X10*3/uL (160-400); Red Blood Count 4.85 X10*6/uL (4.60-5.80); Red Cell Distribution Width 13.2 % (11.0-16.0); White Blood Count 5.1 X10*3/uL (4.8-10.8)
[2024-07-18 10:39] LABS: Alanine Aminotransferase 37 U/L (0-40); Albumin Level 4.2 g/dL (3.5-5.0); Alkaline Phosphatase 53 U/L (39-117); Anion Gap 10 (12-20); Aspartate Amino Transferase 36 U/L (5-37); Bilirubin Total 0.7 mg/dL (0.0-1.0); Blood Urea Nitrogen 11 mg/dL (9-16); Carbon Dioxide 24 mmol/L (22-29); Chloride 102 mmol/L (96-108); Cholesterol 187 mg/dL (<200); Estimated Glomerular Filt Rate > 60; Glucose Fasting 101 mg/dL (60-99); HDL Cholesterol 51 mg/dL (>40); LDL Cholesterol Calculated 89 mg/dL (<100); Potassium 3.7 mmol/L (3.3-5.1); Sodium 132 mmol/L (135-145); Total Protein 7.4 g/dL (6.5-8.0); Triglycerides 238 mg/dL (<150)
[2024-07-18 10:40] LABS: Prostate Specific Antigen Scr 0.54 ng/mL (<0.05-4.0)
== END 2024-07-18 07:20 | disposition home or self-care (01) ==
LOC: HO.HMGCLDS 07:19
PROVIDERS: PCP Nurse Practitioner Family; Visit Provider Nurse Practitioner Family
DX: Z00.00 Encounter for general adult medical examination without abnormal findings (principal); Z12.5 Encounter for screening for malignant neoplasm of prostate; Z13.6 Encounter for screening for cardiovascular disorders
CPT/HCPCS: 36415; 80053; 80061; 81001; 81003; 84153; 84443; 85025